=== PATIENT | male | born 1940 | race Caucasian/White ===

== ENCOUNTER 2018-08-12 10:20 | Observation (INO) | payer MEDICARE ==
[2018-08-12 10:41] LABS: ABSOLUTE EOSINOPHILS # (AUTO) 0.1 10^3/uL (0.0-0.6); ABSOLUTE LYMPHOCYTES (AUTO) 1.4 10^3/uL (0.5-4.7); ABSOLUTE MONOCYTES (AUTO) 0.7 10^3/uL (0.1-1.4); ABSOLUTE NEUT (AUTO) 7.5 10^3/uL (1.7-8.2); BASOPHILS % (AUTO) 0.5 % (0-2); EOSINOPHILS % (AUTO) 0.7 % (0-6); HEMATOCRIT 27.3 % (37.9-51.0); HEMOGLOBIN 9.3 g/dL (13.5-17.0); LYMPHOCYTES % (AUTO) 14.2 % (13-45); MEAN CORPUSCULAR HEMOGLOBIN 29.7 pg (27.0-33.4); MEAN CORPUSCULAR HGB CONC 33.8 g/dL (32.0-36.0); MEAN CORPUSCULAR VOLUME 88 fl (80-97); MONOCYTES % (AUTO) 7.2 % (3-13); PLATELET COUNT 240 10^3/uL (150-450); RED BLOOD COUNT 3.11 10^6/uL (4.35-5.55); RED CELL DISTRIBUTION WIDTH 12.8 % (11.5-14.0); SEGMENTED NEUTROPHILS % (AUTO) 77.4 % (42-78); TOTAL CELLS COUNTED % (AUTO) 100 %; WHITE BLOOD COUNT 9.7 10^3/uL (4.0-10.5)
--- NOTE | 2018-08-12 10:59 | ER Document Report ---
ED General - General Chief Complaint: Altered Mental Status Stated Complaint: ALTERED MENTAL STATUS Time Seen by Provider: 08/12/18 10:26 Mode of Arrival: Medic Information source: Patient, Emergency Med Personnel Notes: Patient is a 77-year-old male who presents to the emergency department with chief complaint of altered mental status and blood in stools. EMS was called to the home this morning as a friend came to the house and found that the patient was not acting right. Patient's states that patient woke up this morning with slurred speech and altered mental status. On EMS arrival patient was found to be sitting in his chair in the living room next to a propane space heater. His initial O2 saturations were 87-88% and patient was alert but confused. They did a stroke screen which was negative. The fire department was on scene and states that the CO2 levels in the home were elevated. Once EMS got the patient outside his mental status improved rapidly and his oxygen saturation improved to the high 90s. On arrival to the emergency department patient is completely al ert and oriented and able to answer all questions without difficulty. Patient denies any complaints at this time. He does report that over the last 2-3 days he has been having dark red blood in his stools. He states that this happened several years ago and his doctor gave him "some pills" which cleared it up. He states he has not seen his primary care provider in approximately 1 year. He reports past medical history of a TIA in 2001. He reports his only medications daily is an 81 mg aspirin and multivitamin vitamin. TRAVEL OUTSIDE OF THE [place] IN LAST 30 DAYS: No - Related Data Allergies/Adverse Reactions: No Known Allergies Allergy (Verified 05/13/16 15:25) Past Medical History - Social History Smoking Status: Never Smoker Chew tobacco use (# tins/day): No Frequency of alcohol use: None Drug Abuse: None Family History: Reviewed & Not Pertinent Patient has suicidal ideation: No Patient has homicidal ideation: No - Past Medical History Cardiac Medical History: Denies: Hx Coronary Artery Disease, Hx Heart Attack, Hx Hypertension Pulmonary Medical History: Denies: Hx Asthma, Hx Bronchitis, Hx COPD, Hx Pneumonia Neurological Medical History: Denies: Hx Cerebrovascular Accident, Hx Seizures Renal/ Medical History: Denies: Hx Peritoneal Dialysis Musculoskeletal Medical History: Reports Hx Arthritis - SHOULDERS - Immunizations Hx Diphtheria, Pertussis, Tetanus Vaccination: Yes Physical Exam - Vital signs Vitals: Resp BP Pulse Ox 15 155/74 H 98 08/12/18 10:29 08/12/18 10:29 08/12/18 10:29 - Notes Notes: PHYSICAL EXAMINATION: GENERAL: Well-appearing, well-nourished and in no acute distress. HEAD: Atraumatic, normocephalic. EYES: Pupils equal round and reactive to light, extraocular movements intact, sclera anicteric, conjunctiva are normal. ENT: Nares patent, oropharynx clear without exudates. Moist mucous membranes. NECK: Normal range of motion, supple without lymphadenopathy LUNGS: Breath sounds clear to auscultation bilaterally and equal. No wheezes rales or rhonchi. HEART: Regular rate and rhythm without murmurs ABDOMEN: Soft, nontender, nondistended abdomen. No guarding, no rebound. No masses appreciated. Musculoskeletal: Normal range of motion, no pitting or edema. No cyanosis. Gastrointestinal: No external hemorrhoids visualized, dark red blood noted on digital exam. NEUROLOGICAL: Cranial nerves grossly intact. Normal speech, normal gait. Normal sensory, motor exams PSYCH: Normal mood, normal affect. SKIN: Warm, Dry, normal turgor, no rashes or lesions noted. Course - Re-evaluation Re-evalutation: 08/12/18 11:22 On arrival patient was completely alert, oriented with no neurological deficits noted. Patient was placed on the monitor tech as well as continuous pulse ox monitoring and patient's vital signs are all within normal limits. Lab work was obtained and sent for analysis. Bedside Hemoccult was performed and was positive. Patient was sent for head CT due to episode of altered mental status prior to arrival. Hemoglobin of 9.1, we do not have a baseline on file for this patient. CMP is unremarkable. Carboxyhemoglobin slightly elevated at 1.8. Patient receiving O2 via nasal cannula 3 L at this time. EKG is a sinus rhythm with a rate of 90, prolonged QTC at 500, right bundle branch block noted, no ST segment elevations or depressions, no previous EKG on file. Bedside Hemoccult is positive. 08/12/18 11:[address] Rogel, on-call surgeon for possible colonoscopy. Dr. Rogel will come see the patient. Added on orders for coagulation studies as well as type and screen. Head CT is resulted and has no acute findings. 08/12/18 12:31 Patient accepted for admission by Dr. Rogel. - Vital Signs Vital signs: Temp Pulse Resp BP Pulse Ox 97.3 F 12 145/80 H 100 08/12/18 10:31 08/12/18 12:01 08/12/18 12:01 08/12/18 12:01 - Laboratory Result Diagrams: 08/12/18 10:10 08/12/18 10:10 Laboratory results interpreted by me: 08/12/18 08/12/18 08/12/18 10:10 10:10 10:35 RBC 3.11 L Hgb 9.3 L Hct 27.3 L Carboxyhemoglobin 1.8 H Sodium 136.5 L Glucose 264 H Total Protein 5.9 L Albumin 3.1 L - Diagnostic Test Radiology reviewed: Reports reviewed Discharge - Discharge Clinical Impression: Elevated carboxyhemoglobin GI bleed Qualifiers: GI bleed type/associated pathology: melena Qualified Code(s): K92.1 - Melena Condition: Stable Disposition: ADMITTED INPATIENT Admitting Provider: Surgicalist Unit Admitted: Medical Floor
[2018-08-12 11:09] LABS: ALANINE AMINOTRANSFERASE 22 U/L (21-72); ALBUMIN 3.1 g/dL (3.5-5.0); ALKALINE PHOSPHATASE 67 U/L (38-126); ANION GAP 7 (5-19); ASPARTATE AMINO TRANSFERASE 17 U/L (17-59); BILIRUBIN,DIRECT 0.2 mg/dL (0.0-0.4); BILIRUBIN,TOTAL 0.5 mg/dL (0.2-1.3); BLOOD UREA NITROGEN 20 mg/dL (7-20); CALCIUM 8.6 mg/dL (8.4-10.2); CARBON DIOXIDE 27 mmol/L (22-30); CHLORIDE 103 mmol/L (98-107); GLUCOSE 264 mg/dL (75-110); POTASSIUM 4.8 mmol/L (3.6-5.0); SODIUM 136.5 mmol/L (137-145); TOTAL PROTEIN 5.9 g/dL (6.3-8.2)
--- NOTE | 2018-08-12 11:28 | RADIOLOGY REPORT (SQ) ---
EXAM DESCRIPTION: CT HEAD WITHOUT COMPLETED DATE/TIME: 08/12/2018 11:19 am REASON FOR STUDY: resolved ams COMPARISON: 05/13/2016. TECHNIQUE: Axial images acquired through the brain without intravenous contrast. Images reviewed wi th bone, brain and subdural windows. Additional sagittal and coronal reconstructions were generated. Images stored on PACS. All CT scanners at this facility use dose modulation, iterative reconstruction, and/or weight based d osing when appropriate to reduce radiation dose to as low as reasonably achievable (ALARA). [facility]: Dose Right [facility]: CareDose [facility]: Dose Right [facility]: Teradose 4D [facility]: Pronota RADIATION DOSE: CT Rad equipment meets quality standard of care and radiation dose reduction techniq ues were employed. CTDIvol: 53.2 mGy. DLP: 991 mGy-cm.mGy. LIMITATIONS: None. FINDINGS: VENTRICLES: Prominent. CEREBRUM: No masses. No hemorrhage. No midline shift. Areas of low density in the white matter mos t likely due to chronic micro-vascular ischemic change. No evidence for acute infarction. CEREBELLUM: No masses. No hemorrhage. No alteration of density. No evidence for acute infarction. EXTRAAXIAL SPACES: Age-related involutional change. No fluid collections. No masses. ORBITS AND GLOBE: No intra- or extraconal masses. Normal contour of globe without masses. CALVARIUM: No fracture. PARANASAL SINUSES: No fluid or mucosal thickening. SOFT TISSUES: No mass or hematoma. OTHER: No other significant finding. IMPRESSION: CHRONIC CHANGES OF ATROPHY AND MICROVASCULAR ISCHEMIA. NO ACUTE PROCESS. EVIDENCE OF ACUTE STROKE: NO. TECHNICAL DOCUMENTATION: JOB ID: [id number] Quality ID # [id number]: Final reports with documentation of one or more dose reduction techniques (e.g., Au tomated exposure control, adjustment of the mA and/or kV according to patient size, use of iterative reconstruction technique) 2010 [employer]- All Rights Reserved Reading location - IP/workstation name: [email or web address]
[2018-08-12 11:49] LABS: INTERNATIONAL RATION (INR) 1.06; PROTHROMBIN TIME 14.3 SEC (11.4-15.4)
[2018-08-12 11:50] LABS: PARTIAL THROMBOPLASTIN TIME 25.9 SEC (23.5-35.8)
[2018-08-12] MEDS ORDERED: NORMAL SALINE 1000 ML 1,000 ML IV ONE (12:32)
--- NOTE | 2018-08-12 12:32 | PDOC H&P ---
History of Present Illness Admission Date/PCP: 08/12/18 Patient complains of: rectal bleeding x 3 days History of Present Illness: KALEB FRANKLIN is a 77 year old male, healthy, with a 3 day hx of hematochetia during defecation. He was brought to the ER by the EMS called by the family concerned by the patient slight confusion. He was using a propane space heater when he became slightly confused. He is on daily 81 mg oral aspirin. His CO level was found to be slightly elevated (1.8) and his H/H is decreased (9.3/27.3), normal coagulation profile. He has a hx of previous gastrointestinal bleeding 1 year ago and treated with 'pills' by his PCP with resolution of the symptoms. Currently, he denies any symptoms such as abdominal pain, painful defecation, heartburn, n/v, weight loss or loss of appetite. Past Medical History Cardiac Medical History: Denies: Coronary Artery Disease, Myocardial Infarction, Hypertension Pulmonary Medical History: Denies: Asthma, Bronchitis, Chronic Obstructive Pulmonary Disease (COPD), Pneumonia Neurological Medical History: Denies: Seizures Musculoskeltal Medical History: Reports: Arthritis - SHOULDERS Hematology: Denies: Anemia Social History Smoking Status: Never Smoker Family History Family History: Reviewed & Not Pertinent Parental Family History Reviewed: No Children Family History Reviewed: No Sibling(s) Family History Reviewed.: No Medication/Allergy Home Medications: Aspirin [Aspirin EC] 81 mg PO DAILY 04/06/13 Allergies/Adverse Reactions: No Known Allergies Allergy (Verified 05/13/16 15:25) Physical Exam Vital Signs: Temp Pulse Resp BP Pulse Ox 97.3 F 12 145/80 H 100 08/12/18 10:31 08/12/18 12:01 08/12/18 12:01 08/12/18 12:01 Intake & Output 08/11/18 08/12/18 08/13/18 06:59 06:59 06:59 Weight 67.5 kg General appearance: PRESENT: no acute distress, cooperative Eye exam: PRESENT: EOMI Mouth exam: PRESENT: moist Neck exam: PRESENT: full ROM Respiratory exam: PRESENT: clear to auscultation deb Cardiovascular exam: PRESENT: RRR GI/Abdominal exam: PRESENT: normal bowel sounds, soft, other - groins= no hernia identified Extremities exam: PRESENT: full ROM Musculoskeletal exam: PRESENT: full ROM Neurological exam: PRESENT: alert Skin exam: PRESENT: warm Results Laboratory Results: 08/12/18 10:10 08/12/18 10:10 08/12/18 08/12/18 08/12/18 10:10 10:10 10:35 WBC 9.7 RBC 3.11 L Hgb 9.3 L Hct 27.3 L MCV 88 MCH 29.7 MCHC 33.8 RDW 12.8 Plt Count 240 Seg Neutrophils % 77.4 Lymphocytes % 14.2 Monocytes % 7.2 Eosinophils % 0.7 Basophils % 0.5 Absolute Neutrophils 7.5 Absolute Lymphocytes 1.4 Absolute Monocytes 0.7 Absolute Eosinophils 0.1 Absolute Basophils 0.0 Carboxyhemoglobin 1.8 H Sodium 136.5 L Potassium 4.8 Chloride 103 Carbon Dioxide 27 Anion Gap 7 BUN 20 Creatinine 1.12 Est GFR ( Amer) > 60 Est GFR (Non-Af Amer) > 60 Glucose 264 H Calcium 8.6 Total Bilirubin 0.5 AST 17 ALT 22 Alkaline Phosphatase 67 Total Protein 5.9 L Albumin 3.1 L Impressions: Head CT 08/12/18 10:41 IMPRESSION: CHRONIC CHANGES OF ATROPHY AND MICROVASCULAR ISCHEMIA. NO ACUTE PROCESS. EVIDENCE OF ACUTE STROKE: NO. Assessment & Plan - Diagnosis (1) Anemia Qualifiers: Other causes of anemia: acute posthemorrhagic Is this a current diagnosis for this admission?: Yes - Plan Summary Plan Summary: A/ Hematochetia Anemia No actual GI symptoms with negative physical exam Hx of previous lower GI bleeding 1 year ago, not investigated P/ Admit clear liquid diet NPO after MN Consent for EGD colonoscopy with biopsy under IV sedation bowel prep today Fleet enema in AM IVF
[2018-08-12] MEDS ORDERED: PEG 3350/NA SULF,BICARB,CL/KCL 4000 ML PO ONE (16:00)
[2018-08-12] MEDS ORDERED: BISACODYL 5 MG TABEC PO ONE (16:00)
--- NOTE | 2018-08-12 17:56 | EKG REPORT ---
SEVERITY:- ABNORMAL ECG - SINUS RHYTHM RBBB AND LPFB : Confirmed by: Rk Loredo 12-Aug-2018 17:55:38
[2018-08-12] MEDS: POTASSI CL 20 MEQ/NS 1L 1,000 ML IV PRN (17:57)
[2018-08-12 20:48] LABS: APPEARANCE,URINE CLEAR; BILIRUBIN,URINE NEGATIVE (NEGATIVE); COLOR,URINE STRAW; GLUCOSE, URINE 150 mg/dL (NEGATIVE); KETONES,URINE NEGATIVE (NEGATIVE); LEUKOCYTE ESTERASE,URINE NEGATIVE (NEGATIVE); NITRITE,URINE NEGATIVE (NEGATIVE); PROTEIN,URINE NEGATIVE (NEGATIVE); UROBILINOGEN,URINE NEGATIVE mg/dL (<2.0)
[2018-08-12] MEDS ORDERED: ACETAMINOPHEN 325 MG TABLET PO PRN (23:07)
[2018-08-13] MEDS ORDERED: LORAZEPAM INJ 2 MG/1 ML VIAL IV PRN (02:25)
[2018-08-13] MEDS: POTASSI CL 20 MEQ/NS 1L 1,000 ML IV PRN (04:30)
[2018-08-13] MEDS ORDERED: NA PHOS,M-B/NA PHOS,DI-BA (ADULT) 133 ML ENEMA PR ONE (06:00)
[2018-08-13 06:51] LABS: ABSOLUTE BASOPHILS # (AUTO) 0.1 10^3/uL (0.0-0.2); ABSOLUTE EOSINOPHILS # (AUTO) 0.1 10^3/uL (0.0-0.6); ABSOLUTE LYMPHOCYTES (AUTO) 1.7 10^3/uL (0.5-4.7); ABSOLUTE MONOCYTES (AUTO) 0.7 10^3/uL (0.1-1.4); ABSOLUTE NEUT (AUTO) 5.7 10^3/uL (1.7-8.2); EOSINOPHILS % (AUTO) 0.7 % (0-6); LYMPHOCYTES % (AUTO) 20.8 % (13-45); MEAN CORPUSCULAR HEMOGLOBIN 29.6 pg (27.0-33.4); MEAN CORPUSCULAR HGB CONC 34.3 g/dL (32.0-36.0); MEAN CORPUSCULAR VOLUME 86 fl (80-97); MONOCYTES % (AUTO) 8.4 % (3-13); PLATELET COUNT 186 10^3/uL (150-450); RED BLOOD COUNT 2.56 10^6/uL (4.35-5.55); RED CELL DISTRIBUTION WIDTH 12.8 % (11.5-14.0); SEGMENTED NEUTROPHILS % (AUTO) 69.1 % (42-78); TOTAL CELLS COUNTED % (AUTO) 100 %; WHITE BLOOD COUNT 8.3 10^3/uL (4.0-10.5)
[2018-08-13 07:05] LABS: HEMOGLOBIN 7.6 g/dL (13.5-17.0)
[2018-08-13 07:10] LABS: BLOOD UREA NITROGEN 14 mg/dL (7-20); CALCIUM 8.3 mg/dL (8.4-10.2); GLUCOSE 160 mg/dL (75-110)
[2018-08-13 07:15] LABS: ANION GAP 5 (5-19); CARBON DIOXIDE 26 mmol/L (22-30); CHLORIDE 106 mmol/L (98-107); SODIUM 137.1 mmol/L (137-145)
[2018-08-13] MEDS ORDERED: EPINEPHRINE INJ 1 MG/10 ML DISP.SYRIN ONE (11:19)
[2018-08-13] MEDS ORDERED: NALOXONE HCL INJ/PF 0.4 MG/1 ML SDV ONE (11:19)
[2018-08-13] MEDS ORDERED: DIPHENHYDRAMINE HCL 50 MG/ML VIAL ONE (11:19)
[2018-08-13] MEDS ORDERED: GLUCAGON,HUMAN RECOMB 1 MG INJ ONE (11:19)
[2018-08-13] MEDS ORDERED: FLUMAZENIL INJ 0.5 MG/5 ML VIAL ONE (11:19)
[2018-08-13] MEDS ORDERED: ONDANSETRON HCL INJ/PF 4 MG/2 ML SDV ONE (11:19)
[2018-08-13] MEDS: MIDAZOLAM 2 MG/2 ML INJ ONE ×3 (11:20→11:33)
[2018-08-13] MEDS: FENTANYL CITRATE INJ/PF 100 MCG/2 ML AMPUL ONE ×3 (11:22→11:33)
--- NOTE | 2018-08-13 12:10 | Operative Report ---
Nonrecallable Operative Report DATE OF SURGERY: 08/13/18 PREOPERATIVE DIAGNOSIS: anemia, hematocetia, hemepositive stools POSTOPERATIVE DIAGNOSIS: same. normal EGD. sigmoid and left colon diverticulosis OPERATION: EGD. Colonoscopy to cecum SURGEON: GINNY JARAMILLO ANESTHESIA: Moderate Sedation - provided by Dr. Jaramillo= 2 mg IVP Versed; 62.5 mcg Fentanyl TISSUE REMOVED OR ALTERED: n/a COMPLICATIONS: n/a ESTIMATED BLOOD LOSS: n/a INTRAOPERATIVE FINDINGS: Normal EGD. Colonoscopy to cecum significant only for scattered diverticuli of sigmoid and left colon PROCEDURE: see dictation
--- NOTE | 2018-08-13 12:42 | OPERATIVE REPORT E ---
Operative Report NAME: KALEB FRANKLIN : 1940 AGE: 77Y DATE OF SURGERY: 08/13/2018 ROOM: 428 PREOPERATIVE DIAGNOSIS: ANEMIA, HEMATOCHEZIA, HEME POSITIVE STOOLS. POSTOPERATIVE DIAGNOSIS: 1. ANEMIA, HEMATOCHEZIA, HEME POSITIVE STOOLS. 2. NORMAL EPIGASTRIC DUODENOSCOPY. 3. SIGMOID AND LEFT COLON DIVERTICULOSIS OPERATION: 1. EGD 2. Colonoscopy to cecum. SURGEON: GINNY JARAMILLO M.D. SENIOR ENERGY CONSULTANT: None. BLEEDING: None. COMPLICATIONS: None. ANESTHESIA: IV sedation provided by Dr. Jaramillo, 2 mg of Versed, 62.5 mcg of fentanyl IV push. INDICATIONS AND FINDINGS: This is an 77-year-old male who presented to the Emergency Room complaining of maroon-colored stools, no abdominal pain. He was found to be anemic with a hemoglobin of 9. The patient was admitted and underwent a bowel prep overnight and scheduled to undergo EGD and colonoscopy today. Procedure risks, benefits, and complications were explained to the patient. He understands all of the above and decides to proceed. DESCRIPTION OF PROCEDURE: It was done in the procedure room. The patient was placed in the lateral decubitus. IV sedation provided as above. The upper endoscopy was performed by inserting the gastroscope through the mouth, esophagus, stomach, and duodenum. Preparation was good. No masses, polyps, fissures, indentations, mucosal changes, or ulcerations identified. The instrument was then retroflexed. The fundus of the stomach as well as lesser and greater curvature of the stomach appeared to be normal. The antrum was within normal limits. No abnormalities were noted. The instrument was slowly withdrawn into the esophagus which appeared to be within normal limits with no lesions identified. The instrument was removed through the patient's mouth without difficulty. The colonoscopy was then performed by inserting the scope into the rectum to the ascending colon up to the cecum. Preparation was good. No masses, polyps, fissures, indentations, mucosal changes, ulcerations noted. Scattered sigmoid diverticula and left colon diverticula were identified. Instrument could not be retroflexed in the rectum. However, no lesions were noted. The instrument was then removed. The patient tolerated the procedure well and was transferred to the recovery room in satisfactory condition. DICTATING PHYSICIAN: GINNY JARAMILLO M.D. [id number] PHY#: [id number] ID: [id number] JOB#: [id number] ACCT: [id number] cc:GINNY JARAMILLO M.D. > DARRYL
[2018-08-13] MEDS ORDERED: NORMAL SALINE 1000 ML 1,000 ML IV PRN (14:17)
[2018-08-13 15:26] VITALS: BP 158/90
[2018-08-13] MEDS ORDERED: FERROUS SULFATE 325 MG TABLET PO SCH (17:00)
--- NOTE | 2018-08-14 15:55 | DISCHARGE SUMMARY E ---
Discharge Summary NAME: KALEB FRANKLIN : 1940 AGE: 77Y ADMITTED: 08/12/2018 DISCHARGED: 08/13/2018 FINAL DIAGNOSES: 1. Anemia. 2. Sigmoid left colon diverticulosis. 3. State of confusion. PROCEDURE: On 08/13/2018 the patient underwent EGD and colonoscopy. COMPLICATIONS: None. HOSPITAL COURSE: This is a 77-year-old male who was brought to the emergency room because of the history of initial confusion followed by the identification of anemia in his blood work done when the patient came to the emergency room. His initial hemoglobin and hematocrit were 9.7 and 27.3. The patient was therefore admitted, was rehydrated, underwent a bowel prep, was kept n.p.o., and on 08/13/2018 the patient underwent an EGD and colonoscopy. Both procedures were uneventful. No complications. The EGD was negative. The colonoscopy to cecum revealed only scattered diverticula of the sigmoid and left colon. Following that, the patient was transferred to the floor. His diet was advanced to regular. He was discharged to home. He was given instruction to resume regular diet, remain at rest at home on the day of the procedure. The following day the patient was instructed to resume all activities, regular diet, and follow up in Surgery office in 2 weeks. His daily aspirin was discontinued because of the possible diverticular bleeding. The patient was given instructions to take iron 325 mg by mouth twice a day with meals. DICTATING PHYSICIAN: GINNY JARAMILLO M.D. [id number] PHY#: [id number] ID: [id number] JOB#: [id number] ACCT: [id number] cc:GINNY JARAMILLO M.D. > MTDD
== END 2018-08-13 16:00 | disposition home or self-care (01) ==
LOC: ER 10:20 → INTOOBSV 13:31 → EH 13:31 → 4S 14:42 → UNDODISOB 08-13 16:00
PROVIDERS: ADMIT Surgery; ATTEND Surgery
PROC: 0DJ08ZZ Inspection of Upper Intestinal Tract, Via Natural or Artificial Opening Endoscopic (ICD-10-PCS; principal; 2018-08-13 10:00)
PROC: 0DJD8ZZ Inspection of Lower Intestinal Tract, Via Natural or Artificial Opening Endoscopic (ICD-10-PCS; 2018-08-13 10:00)
DX: D62 Acute posthemorrhagic anemia (principal); K57.30 Diverticulosis of large intestine without perforation or abscess without bleeding; R41.0 Disorientation, unspecified; I45.10 Unspecified right bundle-branch block; R79.81 Abnormal blood-gas level; Z79.82 Long term (current) use of aspirin; Z87.19 Personal history of other diseases of the digestive system; Z86.73 Personal history of transient ischemic attack (TIA), and cerebral infarction without residual deficits; Z77.29 Contact with and (suspected) exposure to other hazardous substances
CPT/HCPCS: 93005; 99285; 43235; 45378; 86900; 86901; 36415 ×2; 82375; 86850; 85025 ×2; 85610; 85730; 80048; 80053; 81001; 70450; 93010; A9270 ×3; J2250; J3010; J2060; J3490; J7030; J3480 ×2; J0171; J1200; J1610; J2310; J2405

== ENCOUNTER → 2018-09-08 | Outpatient (CLI) | payer MEDICARE ==
[2018-09-08 12:56] LABS: ABSOLUTE BASOPHILS # (AUTO) 0.1 10^3/uL (0.0-0.2); ABSOLUTE EOSINOPHILS # (AUTO) 0.1 10^3/uL (0.0-0.6); ABSOLUTE MONOCYTES (AUTO) 0.6 10^3/uL (0.1-1.4); ABSOLUTE NEUT (AUTO) 5.6 10^3/uL (1.7-8.2); BASOPHILS % (AUTO) 0.8 % (0-2); EOSINOPHILS % (AUTO) 1.4 % (0-6); HEMATOCRIT 28.3 % (37.9-51.0); HEMOGLOBIN 9.3 g/dL (13.5-17.0); LYMPHOCYTES % (AUTO) 13.5 % (13-45); MEAN CORPUSCULAR HEMOGLOBIN 26.7 pg (27.0-33.4); MEAN CORPUSCULAR HGB CONC 32.9 g/dL (32.0-36.0); MONOCYTES % (AUTO) 8.5 % (3-13); PLATELET COUNT 384 10^3/uL (150-450); RED CELL DISTRIBUTION WIDTH 14.4 % (11.5-14.0); SEGMENTED NEUTROPHILS % (AUTO) 75.8 % (42-78); TOTAL CELLS COUNTED % (AUTO) 100 %; WHITE BLOOD COUNT 7.4 10^3/uL (4.0-10.5)
[2018-09-08 13:05] LABS: MEAN CORPUSCULAR VOLUME 81 fl (80-97)
[2018-09-08 13:17] LABS: ALANINE AMINOTRANSFERASE 15 U/L (21-72); ALBUMIN 3.4 g/dL (3.5-5.0); ALKALINE PHOSPHATASE 96 U/L (38-126); ANION GAP 10 (5-19); ASPARTATE AMINO TRANSFERASE 19 U/L (17-59); BILIRUBIN,DIRECT 0.2 mg/dL (0.0-0.4); BILIRUBIN,TOTAL 0.4 mg/dL (0.2-1.3); BLOOD UREA NITROGEN 15 mg/dL (7-20); CALCIUM 8.8 mg/dL (8.4-10.2); CARBON DIOXIDE 32 mmol/L (22-30); CHLORIDE 100 mmol/L (98-107); GLUCOSE 153 mg/dL (75-110); POTASSIUM 3.9 mmol/L (3.6-5.0); TOTAL PROTEIN 6.8 g/dL (6.3-8.2)
[2018-09-08 13:33] LABS: FREE T4 (FREE THYROXINE) 1.05 ng/dL (0.78-2.19)
[2018-09-08 13:47] LABS: THYROID STIMULATING HORMONE 2.21 uIU/mL (0.47-4.68)
== END ==
LOC: OD 11:18
PROVIDERS: ATTEND Internal Medicine
DX: D64.9 Anemia, unspecified (principal); R63.4 Abnormal weight loss; R53.83 Other fatigue; R54 Age-related physical debility
CPT/HCPCS: 36415; 80053; 84439; 84443; 85025

== ENCOUNTER → 2018-09-29 | Outpatient (CLI) | payer MEDICARE ==
[2018-09-29 13:38] LABS: ABSOLUTE BASOPHILS # (AUTO) 0.1 10^3/uL (0.0-0.2); ABSOLUTE EOSINOPHILS # (AUTO) 0.1 10^3/uL (0.0-0.6); ABSOLUTE LYMPHOCYTES (AUTO) 1.4 10^3/uL (0.5-4.7); ABSOLUTE MONOCYTES (AUTO) 0.7 10^3/uL (0.1-1.4); ABSOLUTE NEUT (AUTO) 5.8 10^3/uL (1.7-8.2); BASOPHILS % (AUTO) 0.7 % (0-2); EOSINOPHILS % (AUTO) 1.1 % (0-6); HEMATOCRIT 31.9 % (37.9-51.0); HEMOGLOBIN 10.3 g/dL (13.5-17.0); LYMPHOCYTES % (AUTO) 16.9 % (13-45); MEAN CORPUSCULAR HEMOGLOBIN 25.5 pg (27.0-33.4); MEAN CORPUSCULAR HGB CONC 32.2 g/dL (32.0-36.0); MEAN CORPUSCULAR VOLUME 79 fl (80-97); MONOCYTES % (AUTO) 8.5 % (3-13); PLATELET COUNT 333 10^3/uL (150-450); RED BLOOD COUNT 4.04 10^6/uL (4.35-5.55); RED CELL DISTRIBUTION WIDTH 15.9 % (11.5-14.0); SEGMENTED NEUTROPHILS % (AUTO) 72.8 % (42-78); TOTAL CELLS COUNTED % (AUTO) 100 %
== END ==
LOC: OD 12:34
PROVIDERS: ATTEND Internal Medicine
DX: D64.9 Anemia, unspecified (principal)
CPT/HCPCS: 36415; 85025

== ENCOUNTER 2018-12-19 14:23 | Emergency (ER) | payer MEDICARE ==
--- NOTE | 2018-12-19 15:04 | RADIOLOGY REPORT (SQ) ---
EXAM DESCRIPTION: CHEST SINGLE VIEW COMPLETED DATE/TIME: 12/19/2018 2:50 pm REASON FOR STUDY: Positive PPD COMPARISON: None. EXAM PARAMETERS: NUMBER OF VIEWS: One view. TECHNIQUE: Single frontal radiographic view of the chest acquired. RADIATION DOSE: NA LIMITATIONS: None. FINDINGS: LUNGS AND PLEURA: Chronic scarring at left lung base with left pleural thickening. MEDIASTINUM AND HILAR STRUCTURES: No masses. Contour normal. HEART AND VASCULAR STRUCTURES: Normal heart and pulmonary vasculature. . BONES: Chronic rotator cuff degeneration. Degenerative changes at the right AC joint. HARDWARE: None in the chest. OTHER: No other significant finding. IMPRESSION: Left basilar atelectasis and pleural thickening. TECHNICAL DOCUMENTATION: JOB ID: [id number] 2010 [employer]- All Rights Reserved Reading location - IP/workstation name: [email or web address]
--- NOTE | 2018-12-19 17:04 | ER Document Report ---
ED General - General Chief Complaint: Abnormal Lab Results Stated Complaint: WEAKNESS Time Seen by Provider: 12/19/18 16:57 Primary Care Provider: RENITA FLOWERS MD [Primary Care Provider] - Follow up as needed Notes: Patient is a 78-year-old male presents to the emergency department via EMS for positive PPD skin test. Per staff at [facility] patient was admitted to their facility on 12/16 after a CVA which left him with left-sided deficits. Per routine administration to the [facility] PPD was performed. PPD was read this morning and was noted to be positive so the patient was sent to the emergency room. Staff and patient are denying any complaints at this time. Patient does know his name, date of , that he is currently in the emergency department but is unable to tell me any further information. Most of patient's HPI was obtained from paperwork sent by [facility]. Past medical history: CVA, dementia, hypertension, diabetes, CARISSA Medications: Amlodipine, aspirin, pantoprazole, potassium, losartan, metformin Allergies: None TRAVEL OUTSIDE OF THE [place] IN LAST 30 DAYS: No - Related Data Allergies/Adverse Reactions: No Known Allergies Allergy (Verified 08/12/18 14:04) Past Medical History - General Information source: Transfer Record - Social History Smoking Status: Never Smoker Chew tobacco use (# tins/day): No Frequency of alcohol use: None Drug Abuse: None Family History: Reviewed & Not Pertinent Patient has suicidal ideation: No Patient has homicidal ideation: No - Past Medical History Cardiac Medical History: Denies: Hx Coronary Artery Disease, Hx Heart Attack, Hx Hypertension Pulmonary Medical History: Denies: Hx Asthma, Hx Bronchitis, Hx COPD, Hx Pneumonia Neurological Medical History: Denies: Hx Cerebrovascular Accident, Hx Seizures Renal/ Medical History: Denies: Hx Peritoneal Dialysis Musculoskeletal Medical History: Reports Hx Arthritis - SHOULDERS - Immunizations Hx Diphtheria, Pertussis, Tetanus Vaccination: Yes Review of Systems - Review of Systems Constitutional: No symptoms reported EENT: No symptoms reported Cardiovascular: No symptoms reported Respiratory: No symptoms reported Gastrointestinal: No symptoms reported Genitourinary: No symptoms reported Male Genitourinary: No symptoms reported Musculoskeletal: No symptoms reported Skin: See HPI Hematologic/Lymphatic: No symptoms reported Neurological/Psychological: See HPI Physical Exam - Vital signs Vitals: Temp Pulse Resp BP Pulse Ox 98.1 F 82 16 137/76 H 99 12/19/18 15:16 12/19/18 15:16 12/19/18 15:16 12/19/18 15:16 12/19/18 15:16 - Notes Notes: GENERAL: Alert, interacts well. No acute distress. HEAD: Normocephalic, atraumatic. EYES: Pupils equal, round, and reactive to light. Extraocular movements intact. ENT: Oral mucosa moist, tongue midline. NECK: Full range of motion. Supple. Trachea midline. LUNGS: Clear to auscultation bilaterally, no wheezes, rales, or rhonchi. No respiratory distress. HEART: Regular rate and rhythm. No murmur ABDOMEN: Soft, non-tender. Non-distended. Bowel sounds present in all 4 quadrants. EXTREMITIES: Moves all 4 extremities spontaneously. No edema, normal radial and dorsalis pedis pulses bilaterally. No cyanosis. 4 out of 4 strength noted all 4 extremities BACK: no cervical, thoracic, lumbar midline tenderness. No saddle anesthesia, normal distal neurovascular exam. NEUROLOGICAL: Alert and oriented to self and place. Normal speech. PSYCH: Normal affect, normal mood. SKIN: Warm, dry, normal turgor. Small area of erythema and induration noted left anterior forearm (presumed area of PPD placement) Course - Re-evaluation Re-evalutation: 12/19/18 17:01 Patient's PPD is placed and left forearm, does appear to be indurated at this time. Patient is unable to tell staff if he has ever had a positive PPD in the past. [facility] has also been contacted and they are also unable to tell staff if the patient has had a positive PPD. Patient's chest x-ray shows no cavitary lesions. Discussed this case with Dr. Shah, my attending who stated that the Pt. can be D/Kartik back to primary nursing facility will continue follow- up with infectious control. Patient continues to be without complaints. Patient stable for discharge. 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 Your chest x-ray reveals no signs of active tuberculosis. You should follow-up with an infectious disease doctor through your primary care provider. Please also return to the emergency room for any other concerns. Referrals: RENITA FLOWERS MD [Primary Care Provider] - Follow up as needed
[2018-12-19 18:03] VITALS: BP 169/97
== END 2018-12-19 18:25 ==
LOC: ER 14:23
DX: R76.11 Nonspecific reaction to tuberculin skin test without active tuberculosis (principal); R53.1 Weakness; F03.90 Unspecified dementia, unspecified severity, without behavioral disturbance, psychotic disturbance, mood disturbance, and anxiety; I10 Essential (primary) hypertension; E11.9 Type 2 diabetes mellitus without complications; Z79.899 Other long term (current) drug therapy; Z79.82 Long term (current) use of aspirin
CPT/HCPCS: 71045; 80053; 83036; 99284

== ENCOUNTER 2019-05-25 12:35 | Inpatient (IN) | payer MEDICARE ==
[2019-05-25 13:07] LABS: HEMATOCRIT 32.6 % (37.9-51.0); HEMOGLOBIN 10.5 g/dL (13.5-17.0); MEAN CORPUSCULAR HEMOGLOBIN 25.6 pg (27.0-33.4); MEAN CORPUSCULAR HGB CONC 32.2 g/dL (32.0-36.0); MEAN CORPUSCULAR VOLUME 80 fl (80-97); PLATELET COUNT 263 10^3/uL (150-450); RED BLOOD COUNT 4.09 10^6/uL (4.35-5.55); WHITE BLOOD COUNT 7.8 10^3/uL (4.0-10.5)
[2019-05-25 13:25] LABS: ABSOLUTE LYMPHOCYTES# (MANUAL) 0.3 10^3/uL (0.5-4.7); ABSOLUTE MONOCYTES # (MANUAL) 0.4 10^3/uL (0.1-1.4); ALBUMIN 3.5 g/dL (3.5-5.0); ALKALINE PHOSPHATASE 96 U/L (38-126); ANION GAP 12 (5-19); ANISOCYTOSIS 1+; ASPARTATE AMINO TRANSFERASE 21 U/L (17-59); BAND NEUTROPHILS % (MANUAL) 3 % (3-5); BASOPHILS % (MANUAL) 0 % (0-2); BILIRUBIN,DIRECT 0.2 mg/dL (0.0-0.4); BILIRUBIN,TOTAL 0.4 mg/dL (0.2-1.3); BLOOD UREA NITROGEN 25 mg/dL (7-20); CALCIUM 9.2 mg/dL (8.4-10.2); CARBON DIOXIDE 26 mmol/L (22-30); CHLORIDE 103 mmol/L (98-107); EOSINOPHILS % (MANUAL) 0 % (0-6); GLUCOSE 229 mg/dL (75-110); LYMPHOCYTES % (MANUAL) 3 % (13-45); MONOCYTES % (MANUAL) 5 % (3-13); PLATELET COMMENT ADEQUATE; SEGMENTED NEUTROPHILS % (MAN) 88 % (42-78); TOTAL CELLS COUNTED 100; TOTAL PROTEIN 7.1 g/dL (6.3-8.2)
[2019-05-25 13:27] LABS: ALCOHOL < 10 mg/dL (NONE DETECTED)
[2019-05-25] MEDS ORDERED: NORMAL SALINE 500 ML IV ONE (13:34)
[2019-05-25] MEDS ORDERED: ACETAMINOPHEN 1,000 MG/100 ML RTUPB IV ONE (13:34)
--- NOTE | 2019-05-25 13:51 | EKG REPORT ---
SEVERITY:- ABNORMAL ECG - SINUS TACHYCARDIA RBBB AND LPFB : Confirmed by: Alex Crain MD 25-May-2019 13:50:41
[2019-05-25 13:56] LABS: APPEARANCE,URINE CLEAR; COLOR,URINE LIGHT YELLOW
[2019-05-25 13:57] LABS: ADD MANUAL MICROSCOPIC YES; BILIRUBIN,URINE NEGATIVE (NEGATIVE); GLUCOSE, URINE 500 mg/dL (NEGATIVE); KETONES,URINE NEGATIVE (NEGATIVE); LEUKOCYTE ESTERASE,URINE NEGATIVE (NEGATIVE); NITRITE,URINE NEGATIVE (NEGATIVE); PROTEIN,URINE 30 mg/dL (NEGATIVE); RBC,URINE 30-50 /HPF; URINE SPECIFIC GRAVITY 1.015; UROBILINOGEN,URINE NEGATIVE mg/dL (<2.0); WBC,URINE RARE /HPF
[2019-05-25 13:58] LABS: AMORPHOUS SEDIMENT,UR TRACE; YEAST,URINE PRESENT
[2019-05-25 14:20] LABS: URINE AMPHETAMINES SCREEN NEGATIVE; URINE BARBITURATES SCREEN NEGATIVE; URINE BENZODIAZEPINES SCREEN NEGATIVE; URINE COCAINE SCREEN NEGATIVE; URINE MARIJUANA (THC) SCREEN NEGATIVE; URINE METHADONE SCREEN NEGATIVE; URINE PHENCYCLIDINE SCREEN NEGATIVE
--- NOTE | 2019-05-25 14:54 | RADIOLOGY REPORT (SQ) ---
EXAM DESCRIPTION: CT HEAD WITHOUT COMPLETED DATE/TIME: 05/25/2019 2:38 pm REASON FOR STUDY: ams COMPARISON: CT of the head without contrast from 08/12/2018. TECHNIQUE: Axial images acquired through the brain without intravenous contrast. Images reviewed wi th bone, brain and subdural windows. Additional sagittal and coronal reconstructions were generated. Images stored on PACS. All CT scanners at this facility use dose modulation, iterative reconstruction, and/or weight based d osing when appropriate to reduce radiation dose to as low as reasonably achievable (ALARA). [facility]: Dose Right [facility]: CareDose [facility]: Dose Right [facility]: Teradose 4D [facility]: [place] Wi Max RADIATION DOSE: CT Rad equipment meets quality standard of care and radiation dose reduction techniq ues were employed. CTDIvol: 53.2 mGy. DLP: 1044 mGy-cm. mGy. LIMITATIONS: None. FINDINGS: The confluent areas of hypoattenuation within the supratentorial periventricular and subco rtical white matter are unchanged and could represent the sequela of chronic microvascular ischemia. The focal areas of hypoattenuation within the basal ganglia and charlene could represent chronic lacunar infarcts. There is no acute intracranial hemorrhage, vascular territorial infarct, extra-axial flui d collection, mass effect or midline shift. There is no effacement of the cerebral sulci or basal correa barachnoid cisterns. The caliber of the ventricles is concordant with the degree of sulcation and un changed from 08/12/2018. The orbits and globes are intact. The paranasal sinuses are clear. There is no fracture of the calv arium. IMPRESSION: Sequela of chronic ischemia without a in tissue per imposed acute intracranial abnormali ty. If clinical concern for an acute CVA persists then correlation with a MRI is recommended. EVIDENCE OF ACUTE STROKE: NO. COMMENT: Quality ID # [id number]: Final reports with documentation of one or more dose reduction techniques (e.g., Automated exposure control, adjustment of the mA and/or kV according to patient size, use of iterative reconstruction technique) TECHNICAL DOCUMENTATION: JOB ID: [id number] [employer]- All Rights Reserved Reading location - IP/workstation name: [email or web address]
--- NOTE | 2019-05-25 15:00 | RADIOLOGY REPORT (SQ) ---
EXAM DESCRIPTION: CHEST SINGLE VIEW COMPLETED DATE/TIME: 05/25/2019 2:42 pm REASON FOR STUDY: ams COMPARISON: AP view of the chest from 12/19/2018. EXAM PARAMETERS: NUMBER OF VIEWS: One view. TECHNIQUE: Single frontal radiographic view of the chest acquired. RADIATION DOSE: NA LIMITATIONS: None. FINDINGS: LUNGS AND PLEURA: The left lateral costophrenic sulcus is blunted. There is an asymmetric airspace opacity in the right lower lobe. There is no pneumothorax. MEDIASTINUM AND HILAR STRUCTURES: Stable mediastinal and hilar contours. HEART AND VASCULAR STRUCTURES: The cardiac silhouette and pulmonary vasculature are within normal orr its. BONES: No acute findings. HARDWARE: None in the chest. OTHER: No other finding. IMPRESSION: 1. Asymmetric airspace opacity in the right lower lobe. Correlate with clinical finding s to exclude pneumonia. 2. Blunting of the left lateral costophrenic sulcus that could represent a trace pleural effusion or chronic pleural thickening. TECHNICAL DOCUMENTATION: JOB ID: [id number] [employer]- All Rights Reserved Reading location - IP/workstation name: [email or web address]
[2019-05-25 16:04] LABS: A TYPE INFLUENZA AG NEGATIVE (NEGATIVE); B INFLUENZA AG NEGATIVE (NEGATIVE)
--- NOTE | 2019-05-25 16:14 | ER Document Report ---
ED General - General Chief Complaint: Altered Mental Status Stated Complaint: ALTERED MENTAL STATUS Time Seen by Provider: 05/25/19 13:21 Primary Care Provider: RENITA FLOWERS MD [Primary Care Provider] - Follow up as needed TRAVEL OUTSIDE OF THE [place] IN LAST 30 DAYS: No - HPI Notes: This is a 78-year-old male who presents via rescue from home for evaluation of altered mental status. Apparently rescue was called by home health nursing. Patient has a history of a recent UTI. Patient is usually alert and oriented x4. EMS reports that patient's O2 sats are 82% on room air, he received a 500 cc bolus of normal saline and 325 of oral Tylenol. Patient's blood pressure was reportedly 170/99 respiratory rate 128, pulse ox 96% on 2 L nasal cannula and blood sugar is 247. Temperature is 102.1 F. Differential diagnosis: Pneumonia, influenza, UTI, sepsis, electrolyte abn ormality - Related Data Allergies/Adverse Reactions: No Known Allergies Allergy (Verified 08/12/18 14:04) Home Medications: ASA, losartan, augmentin, metformin, protonix, potassium, norvasc, atorvastatin. Past Medical History - Social History Smoking Status: Unknown if Ever Smoked Family History: Reviewed & Not Pertinent Patient has suicidal ideation: No Patient has homicidal ideation: No - Past Medical History Cardiac Medical History: Denies: Hx Coronary Artery Disease, Hx Heart Attack, Hx Hypertension Pulmonary Medical History: Denies: Hx Asthma, Hx Bronchitis, Hx COPD, Hx Pneumonia Neurological Medical History: Denies: Hx Cerebrovascular Accident, Hx Seizures Renal/ Medical History: Denies: Hx Peritoneal Dialysis Musculoskeletal Medical History: Reports Hx Arthritis - SHOULDERS - Immunizations Hx Diphtheria, Pertussis, Tetanus Vaccination: Yes Review of Systems - Review of Systems Constitutional: See HPI EENT: No symptoms reported Cardiovascular: No symptoms reported Respiratory: No symptoms reported Gastrointestinal: No symptoms reported Genitourinary: No symptoms reported Male Genitourinary: No symptoms reported Musculoskeletal: No symptoms reported Skin: No symptoms reported Hematologic/Lymphatic: No symptoms reported Neurological/Psychological: Other - Altered mental status -: Yes All other systems reviewed and negative Physical Exam - Vital signs Vitals: Temp Resp BP Pulse Ox 100.0 F 25 H 171/83 H 97 05/25/19 12:42 05/25/19 12:42 05/25/19 12:42 05/25/19 12:42 - Notes Notes: PHYSICAL EXAMINATION: GENERAL: Frail, chronically ill-appearing, in no acute distress. HEAD: Atraumatic, normocephalic. EYES: Pupils equal round and reactive to light, extraocular movements intact, sclera anicteric, conjunctiva are normal. ENT: nares patent, oropharynx clear without exudates. Dry mucous membranes. NECK: Normal range of motion, supple without lymphadenopathy LUNGS: Breath sounds diminished bilaterally. HEART: Tachycardic ABDOMEN: Soft, nontender, quiet bowel sounds. No guarding, no rebound. No masses appreciated. EXTREMITIES: Normal range of motion, no pitting or edema. No cyanosis. NEUROLOGICAL: No focal neurological deficits. Moves all extremities spontaneously PSYCH: Normal mood, normal affect. SKIN: Warm, Dry, normal turgor, no rashes or lesions noted. Course - Re-evaluation Re-evalutation: 05/25/19 16:45 Patient is lying in bed and is in no acute distress at this time. Diagnosis discussed with patient and patient's son who is at bedside. - Vital Signs Vital signs: Temp Pulse Resp BP Pulse Ox 98.8 F 18 119/72 96 05/25/19 14:42 05/25/19 14:01 05/25/19 14:01 05/25/19 14:01 05/25/19 16:47 Vital signs reviewed by this MD. - Laboratory Result Diagrams: 05/25/19 12:48 05/25/19 12:48 Laboratory results interpreted by me: 05/25/19 05/25/19 05/25/19 12:48 12:48 13:23 RBC 4.09 L Hgb 10.5 L Hct 32.6 L MCH 25.6 L RDW 17.0 H Seg Neuts % (Manual) 88 H Lymphocytes % (Manual) 3 L Abs Lymphs (Manual) 0.3 L BUN 25 H Creatinine 1.33 H Est GFR (MDRD) Non-Af 52 L Glucose 229 H Urine Protein 30 H Urine Glucose (UA) 500 H Urine Blood MODERATE H 05/25/19 16:47 All laboratory results reviewed by this MD. - Diagnostic Test Radiology reviewed: Reports reviewed - EKG Interpretation by Me Additional EKG results interpreted by me: 05/25/19 14:18 EKG performed here in the emergency department at 1303 hrs. on 05/25/2019 shows sinus tachycardia, with a rate of 117. Patient has P waves preceding the QRS complexes. QRS complexes appear narrow. There is a right bundle branch block present. 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 When compared to EKG from 08/12/2018, the morphology is grossly similar however the rate is faster than the prior EKG. - Consults DR SANDERS Time consulted: 16:45 Reason for consultation: 05/25/19 16:48 ADMISSION FOR PNEUMONIA Consulted provider: will come to ER Discharge - Discharge Clinical Impression: Pneumonia, Altered mental status Condition: Fair Disposition: ADMITTED OBSERVATION Admitting Provider: Charis (Hospitalist) Unit Admitted: Medical Floor Referrals: RENITA FLOWERS MD [Primary Care Provider] - Follow up as needed
[2019-05-25] MEDS ORDERED: NORMAL SALINE IV ONE (16:39)
[2019-05-25] MEDS ORDERED: PIPERACILLIN/TAZOBACTAM 4.5 GM VIAL IV ONE (16:39)
[2019-05-25] MEDS ORDERED: ACETAMINOPHEN 325 MG TABLET PO PRN (17:36)
[2019-05-25] MEDS ORDERED: TEMAZEPAM 7.5 MG CAPSULE PO PRN (17:36)
[2019-05-25] MEDS ORDERED: ACETAMINOPHEN 650 MG SUPP.RECT PR PRN (17:36)
[2019-05-25] MEDS ORDERED: MAGNESIUM HYDROXIDE SUSP 30 ML UDCUP PO PRN (17:36)
[2019-05-25] MEDS: PIPERACILLIN SODIUM/TAZOBACTAM 4.5 GM in NORMAL SALINE 100 ML IV SCH ×2 (18:15→23:30)
[2019-05-25] MEDS ORDERED: DEXTROSE 40% GEL 15 GM TUBE PO PRN ×2 (18:34)
[2019-05-25] MEDS ORDERED: GLUCAGON,HUMAN RECOMB 1 MG INJ IM PRN (18:34)
[2019-05-25] MEDS ORDERED: DEXTROSE 50%-WATER 25 GM/50 ML DISP.SYRIN IV PRN ×2 (18:34)
[2019-05-25] MEDS ORDERED: LEVALBUTEROL HCL NEB 0.63 MG/3 ML AMPUL NEB PRN (18:41)
--- NOTE | 2019-05-25 18:49 | PDOC H&P ---
History of Present Illness Admission Date/PCP: 05/25/19 17:17 RENITA FLOWERS MD Patient complains of: Increasing weakness History of Present Illness: KALEB FRANKLIN is a 78 year old male who has been experiencing a state of generalized decline over the last 4 weeks. 4 weeks ago his PCP treated him as an outpatient for suspected pneumonia. Approximately 1-1/2 weeks ago he was in the emergency department and treated for suspected urinary tract infection. He now returns with pneumonia. The patient's son and the patient concur that he really has not felt any better for the last 4 weeks and in fact they have noticed a decline. When EMS arrived the house and evaluated the patient was found to have a low oxygen saturation of less than 88% on room air. He was given oxygen and his saturation improved. He in fact is currently resting on room air. He was also found to have a fever of 102.5. His mean arterial pressure stayed above 70. His serum creatinine was elevated at 1.33 and his platelet count was normal. Based on his hypoxia and increased serum creatinine he does meet the criteria for sepsis. He was given appropriate fluid bolus, started on antibiotics for the pneumonia seen on chest x-ray and referred to the hospital service for admission. Past Medical History Cardiac Medical History: Reports: Hyperlipidema, Hypertension Denies: Coronary Artery Disease, Myocardial Infarction Pulmonary Medical History: Denies: Asthma, Bronchitis, Chronic Obstructive Pulmonary Disease (COPD), Pneumonia EENT Medical History: Denies: Eyes, Ears, Nose, Throat Neurological Medical History: Reports: Ischemic CVA Denies: Seizures Endocrine Medical History: Reports: Diabetes Mellitus Type 2 Malignancy Medical History: Reports: None GI Medical History: Denies: Crohn's Disease, Diverticulitis, Hiatal Hernia, Ulcerative Colitis Musculoskeltal Medical History: Reports: Arthritis - SHOULDERS Skin Medical History: Denies: Eczema, Psoriasis Psychiatric Medical History: Denies: Alcohol Dependency, Bipolar Disorder, Depression, Tobacco Dependency Traumatic Medical History: Reports: None Hematology: Denies: Anemia, Bleeding Tendencies, Neutropenia Infectious Medical History: Reports: None Past Surgical History Past Surgical History: Reports: None Social History Information Source: Patient, Relative - Son Lives with: Spouse/Significant other Smoking Status: Never Smoker Electronic Cigarette use?: No Frequency of Alcohol Use: None Hx Recreational Drug Use: No Drugs: None Hx Prescription Drug Abuse: No - Advance Directive Resuscitation Status: Do Not Resuscitate Surrogate healthcare decision maker:: Discussed with the patient and the son who is at the bedside. Family History Family History: CAD, CVA, Malignancy, Other - Depression Parental Family History Reviewed: Yes Children Family History Reviewed: Yes Sibling(s) Family History Reviewed.: Yes Medication/Allergy Allergies/Adverse Reactions: No Known Allergies Allergy (Verified 08/12/18 14:04) Review of Systems Constitutional: PRESENT: fatigue, weight loss. ABSENT: anorexia, headache(s) Ears: ABSENT: hearing changes Nose, Mouth, and Throat: PRESENT: other - Dentures. ABSENT: mouth pain, sore throat Cardiovascular: ABSENT: chest pain, edema, palpitations Respiratory: PRESENT: cough. ABSENT: hemoptysis, sputum Gastrointestinal: ABSENT: abdominal pain, coffee ground emesis, constipation, diarrhea, heartburn, nausea, vomiting Genitourinary: ABSENT: dysuria, hematuria, nocturia Musculoskeletal: PRESENT: other - Bunions. ABSENT: back pain, joint swelling Integumentary: PRESENT: other - Onychomycosis Neurological: ABSENT: abnormal speech, confusion, memory loss, tremor(s), vert igo Psychiatric: ABSENT: anxiety, depression, hallucinations Endocrine: ABSENT: cold intolerance, heat intolerance, polydipsia, polyuria Hematologic/Lymphatic: ABSENT: easy bleeding, easy bruising Allergic/Immunologic: ABSENT: seasonal rhinorrhea Physical Exam Vital Signs: Temp Pulse Resp BP Pulse Ox 98.8 F 19 126/75 H 97 05/25/19 14:42 05/25/19 17:01 05/25/19 17:01 05/25/19 17:01 Intake & Output 05/24/19 05/25/19 05/26/19 06:59 06:59 06:59 Intake Total 600 Balance 600 Weight 62.8 kg General appearance: PRESENT: cooperative, mild distress, thin, well-developed - Well-developed but frail-appearing 78-year-old patient resting in bed Head exam: PRESENT: atraumatic, normocephalic Eye exam: PRESENT: conjunctiva pink, EOMI, PERRLA. ABSENT: conjunctival injection, scleral icterus Ear exam: PRESENT: normal external ear exam. ABSENT: bleeding, drainage Mouth exam: PRESENT: dry mucosa, tongue midline Teeth exam: PRESENT: edentulous Neck exam: ABSENT: carotid bruit, JVD, lymphadenopathy, tenderness, tracheostomy Respiratory exam: PRESENT: decreased breath sounds - At bases, rhonchi - Right side, symmetrical, tachypnea, unlabored. ABSENT: chest wall tenderness, rales, wheezes Cardiovascular exam: PRESENT: RRR, +S1, +S2. ABSENT: systolic murmur Pulses: PRESENT: normal radial pulses, normal dorsalis pedis pul GI/Abdominal exam: PRESENT: normal bowel sounds, soft. ABSENT: distended, guarding, tenderness Rectal exam: PRESENT: deferred Gentrourinary exam: ABSENT: indwelling catheter Extremities exam: ABSENT: joint swelling, pedal edema Musculoskeletal exam: PRESENT: normal inspection Neurological exam: PRESENT: alert, awake, oriented to person, oriented to place, oriented to situation, CN II-XII grossly intact Psychiatric exam: PRESENT: flat affect. ABSENT: agitated, anxious Focused psych exam: ABSENT: delusional, restlessness Skin exam: PRESENT: dry - Dry scaly skin especially feet, other - Bilateral elbow abrasions. Onychomycosis multiple toes.. ABSENT: rash Results Laboratory Results: 05/25/19 12:48 05/25/19 12:48 05/25/19 05/25/19 05/25/19 12:48 12:48 13:23 WBC 7.8 RBC 4.09 L Hgb 10.5 L Hct 32.6 L MCV 80 MCH 25.6 L MCHC 32.2 RDW 17.0 H Plt Count 263 Seg Neutrophils % Not Reportable Sodium 140.5 Potassium 5.0 Chloride 103 Carbon Dioxide 26 Anion Gap 12 BUN 25 H Creatinine 1.33 H Est GFR ( Amer) > 60 Glucose 229 H Calcium 9.2 Magnesium 1.9 Total Bilirubin 0.4 AST 21 Alkaline Phosphatase 96 Total Protein 7.1 Albumin 3.5 Urine Color LIGHT YELLOW Urine Appearance CLEAR Urine pH 7.0 Ur Specific [place] 1.015 Urine Protein 30 H Urine Glucose (UA) 500 H Urine Ketones NEGATIVE Urine Blood MODERATE H Urine Nitrite NEGATIVE Ur Leukocyte Esterase NEGATIVE Impressions: Chest X-Ray 05/25/19 14:21 IMPRESSION: 1. Asymmetric airspace opacity in the right lower lobe. Correlate with clinical findings to exclude pneumonia. 2. Blunting of the left lateral costophrenic sulcus that could represent a trace pleural effusion or chronic pleural thickening. Head CT 05/25/19 14:21 IMPRESSION: Sequela of chronic ischemia without a in tissue per imposed acute intracranial abnormality. If clinical concern for an acute CVA persists then correlation with a MRI is recommended. EVIDENCE OF ACUTE STROKE: NO. Assessment and Plan - Diagnosis (1) Sepsis due to pneumonia Is this a current diagnosis for this admission?: Yes Plan: 05/25/2019-the patient was treated for outpatient pneumonia approximately 4 weeks ago. Approximately 10 days ago he was in the emergency department and was treated for urinary tract infection. He now returns with pneumonia. Due to transient hypoxia and slightly elevated serum creatinine he does qualify for sepsis criteria. He was given fluid resuscitation and started on antibiotic therapy. Lactic acid was not drawn on admission and so I have ordered a lactic acid. Since it is per the sepsis protocol it should be repeated automatically if it is elevated. (2) Pneumonia Qualifiers: Pneumonia type: due to unspecified organism Laterality: right Lung location: lower lobe of lung Qualified Code(s): J18.1 - Lobar pneumonia, unspecified organism Is this a current diagnosis for this admission?: Yes Plan: 05/25/2019-the patient was in fact treated by his primary care provider for a suspected pneumonia 3 to 4 weeks ago. It is possible that this pneumonia did not resolve completely and has now returned. There is a right lower lobe infilt rate. There is no report of recurrent vomiting or aspiration. It is most likely community-acquired. The patient has been somewhat compromised and so Haemophilus or pneumococcus would be likely candidates. He is not having a productive cough and so culture will not be available. (3) Hypoxia Is this a current diagnosis for this admission?: Yes Plan: 05/25/2019-upon arrival at the patient's home EMS found him to be hypoxic with pulse oximetry less than 88%. He was placed on nasal cannula oxygen which was continued in the emergency department but successfully weaned shortly thereafter. At the time of this encounter the patient was on room air with oxygen saturation greater than 90%. (4) Altered mental status Qualifiers: Altered mental status type: delirium Qualified Code(s): R41.0 - Disorientation, unspecified Is this a current diagnosis for this admission?: Yes Plan: 05/25/2019-the patient did have altered mental status initially. It was likely due to hypoxia or his infection. He in fact was very appropriate during this encounter. It is likely the transient use of oxygen and IV fluids helped in this recovery. (5) Hypertension Qualifiers: Hypertension type: essential hypertension Qualified Code(s): I10 - Ess ential (primary) hypertension Is this a current diagnosis for this admission?: Yes Plan: 05/25/2019-in order to avoid hypotension in the presence of sepsis the patient is getting aggressive IV fluids. I will continue the losartan 25 mg daily but as a parameter I will asked him to hold for a systolic blood pressure less than 110. (6) Hyperlipidemia Qualifiers: Hyperlipidemia type: mixed hyperlipidemia Qualified Code(s): E78.2 - Mixed hyperlipidemia Is this a current diagnosis for this admission?: Yes Plan: 05/25/2019-the patient has a history of stroke and hypertension. I will continue his atorvastatin 20 mg daily. I have also initiated aspirin 81 mg daily. (7) Weakness Is this a current diagnosis for this admission?: Yes Plan: 05/25/2019-the patient does have a history of stroke but that is not clinically significant at this time. His weakness is more likely from the recurrent infections over the last month as well as his limited mobility due to his illness. I have asked physical therapy to see the patient. - Plan Summary Summary: 05/25/2019-sepsis from pneumonia: Aggressive IV fluids with IV antibiotics. Continue cardiac meds. Assess with physical therapy. I did have a long talk with patient's son and the patient may be a candidate for assisted living post discharge especially considering his 's bipolar disorder and inability to move in with or have family provide enough care with their chronic illnesses. - Time Time Spent with patient: 35 or more minutes Medications reviewed and adjusted accordingly: Yes Anticipated discharge: Other - Home with home health versus assisted living - Inpatient Certification Based on my medical assessment, after consideration of the patient's comorbidities, presenting symptoms, or acuity I expect that the services needed warrant INPATIENT care.: Yes I certify that my determination is in accordance with my understanding of Medicare's requirements for reasonable and necessary INPATIENT services [42 CFR 412.3e].: Yes Medical Necessity: Need For IV Fluids, Need For Continuous Telemetry Monitoring, Need for Nebulizer Therapy and Monitoring of Response, Need for IV Antibiotics
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
[2019-05-25] MEDS: NORMAL SALINE 1000 ML 1,000 ML IV PRN (22:54)
[2019-05-25] MEDS: INSULIN REG, HUMAN 100 UNIT/ML 3 ML VIAL (PYX) SUBCUT SCH (23:30)
[2019-05-25] MEDS: ASPIRIN 81 MG TABLET, ENT COATED PO SCH (23:36)
[2019-05-25] MEDS: ATORVASTATIN CALCIUM 20 MG TABLET PO SCH (23:37)
[2019-05-26] MEDS: PIPERACILLIN SODIUM/TAZOBACTAM 4.5 GM in NORMAL SALINE 100 ML IV SCH ×3 (05:26→18:19)
[2019-05-26] MEDS: PANTOPRAZOLE SODIUM 40 MG TABLET.DR PO SCH (05:42)
[2019-05-26 06:28] LABS: ABSOLUTE LYMPHOCYTES (AUTO) 0.5 10^3/uL (0.5-4.7); ABSOLUTE MONOCYTES (AUTO) 0.4 10^3/uL (0.1-1.4); ABSOLUTE NEUT (AUTO) 3.4 10^3/uL (1.7-8.2); BASOPHILS % (AUTO) 0.5 % (0-2); EOSINOPHILS % (AUTO) 0.6 % (0-6); HEMATOCRIT 28.5 % (37.9-51.0); HEMOGLOBIN 9.2 g/dL (13.5-17.0); LYMPHOCYTES % (AUTO) 11.6 % (13-45); MEAN CORPUSCULAR HEMOGLOBIN 25.4 pg (27.0-33.4); MEAN CORPUSCULAR HGB CONC 32.3 g/dL (32.0-36.0); MEAN CORPUSCULAR VOLUME 79 fl (80-97); MONOCYTES % (AUTO) 9.7 % (3-13); PLATELET COUNT 185 10^3/uL (150-450); RED BLOOD COUNT 3.63 10^6/uL (4.35-5.55); RED CELL DISTRIBUTION WIDTH 17.4 % (11.5-14.0); SEGMENTED NEUTROPHILS % (AUTO) 77.6 % (42-78); TOTAL CELLS COUNTED % (AUTO) 100 %; WHITE BLOOD COUNT 4.4 10^3/uL (4.0-10.5)
[2019-05-26 06:44] LABS: ANION GAP 7 (5-19); BLOOD UREA NITROGEN 20 mg/dL (7-20); CARBON DIOXIDE 23 mmol/L (22-30); CHLORIDE 107 mmol/L (98-107); GLUCOSE 141 mg/dL (75-110); POTASSIUM 4.1 mmol/L (3.6-5.0)
[2019-05-26] MEDS ORDERED: INFLUENZA QUAD (6MOS+) 2019-20 VAC 0.5 ML SYR IM ONE (08:08)
[2019-05-26] MEDS: INSULIN REG, HUMAN 100 UNIT/ML 3 ML VIAL (PYX) SUBCUT SCH ×4 (08:14→22:04)
[2019-05-26] MEDS: METFORMIN HCL 500 MG TABLET PO SCH ×2 (08:41→18:19)
--- NOTE | 2019-05-26 08:54 | RADIOLOGY REPORT (SQ) ---
EXAM DESCRIPTION: CHEST SINGLE VIEW COMPLETED DATE/TIME: 05/26/2019 8:25 am REASON FOR STUDY: Pneumonia COMPARISON: 05/25/2019 EXAM PARAMETERS: NUMBER OF VIEWS: One view. TECHNIQUE: Single frontal radiographic view of the chest acquired. RADIATION DOSE: NA LIMITATIONS: None. FINDINGS: LUNGS AND PLEURA: Improved but persistent patchy opacity within the right lung base. [place] ncy along the left hemithorax with peripheral lung markings felt to represent overlying skin fold. B lunting of the left costophrenic angle possibly trace effusions versus basilar scarring/ pleural thic kening. MEDIASTINUM AND HILAR STRUCTURES: Stable. HEART AND VASCULAR STRUCTURES: Normal heart size. Aortic atherosclerosis. BONES: No acute findings. Unchanged degenerative changes at the right shoulder. HARDWARE: None in the chest. OTHER: No other significant finding. IMPRESSION: Improved but persistent asymmetric right basilar opacity possibly atelectasis or infecti on. Possible trace left effusion versus pleural thickening. TECHNICAL DOCUMENTATION: JOB ID: [id number] [employer]- All Rights Reserved Reading location - IP/workstation name: [email or web address]
[2019-05-26] MEDS: NORMAL SALINE 1000 ML 1,000 ML IV PRN (10:15)
[2019-05-26] MEDS: LOSARTAN POTASSIUM 25 MG TABLET PO SCH (10:15)
[2019-05-26] MEDS: AZITHROMYCIN 500 MG in DEXTROSE 5%-WATER 250 ML IV SCH (10:15)
[2019-05-26] MEDS: NYSTATIN CREAM 15 GM TP SCH ×2 (10:15→17:54)
--- NOTE | 2019-05-26 12:54 | PDOC PROGRESS REPORT ---
Subjective Progress Note for:: 05/26/19 Reason For Visit: SEPSIS 78-year-old male admitted for sepsis, pneumonia, weakness. Patient was hypoxic as well as febrile on admission Physical Exam Vital Signs: Temp Pulse Resp BP Pulse Ox 99.8 F 84 18 132/68 H 97 05/26/19 06:53 05/26/19 07:00 05/26/19 06:53 05/26/19 06:53 05/26/19 06:53 Intake & Output 05/25/19 05/26/19 05/27/19 06:59 06:59 06:59 Intake Total 3210 Balance 3210 Weight 62.9 kg General appearance: PRESENT: mild distress, other - Patient opens his eyes to voice command but no other response Respiratory exam: PRESENT: decreased breath sounds, rhonchi Cardiovascular exam: PRESENT: RRR. ABSENT: diastolic murmur, rubs, systolic murmur Neurological exam: PRESENT: altered, oriented to place, other - Patient does tell me that he is in [place] in the [facility] Patient also identified the president as "Trump" Psychiatric exam: PRESENT: flat affect Results Laboratory Results: 05/26/19 05:52 05/26/19 05:52 05/25/19 05/25/19 05/25/19 12:48 12:48 13:23 WBC 7.8 RBC 4.09 L Hgb 10.5 L Hct 32.6 L MCV 80 MCH 25.6 L MCHC 32.2 RDW 17.0 H Plt Count 263 Seg Neutrophils % Not Reportable Sodium 140.5 Potassium 5.0 Chloride 103 Carbon Dioxide 26 Anion Gap 12 BUN 25 H Creatinine 1.33 H Est GFR ( Amer) > 60 Glucose 229 H Lactic Acid Calcium 9.2 Magnesium 1.9 Total Bilirubin 0.4 AST 21 Alkaline Phosphatase 96 Total Protein 7.1 Albumin 3.5 Urine Color LIGHT YELLOW Urine Appearance CLEAR Urine pH 7.0 Ur Specific [place] 1.015 Urine Protein 30 H Urine Glucose (UA) 500 H Urine Ketones NEGATIVE Urine Blood MODERATE H Urine Nitrite NEGATIVE Ur Leukocyte Esterase NEGATIVE 05/25/19 05/26/19 05/26/19 19:10 05:52 05:52 WBC 4.4 RBC 3.63 L Hgb 9.2 L Hct 28.5 L MCV 79 L MCH 25.4 L MCHC 32.3 RDW 17.4 H Plt Count 185 Seg Neutrophils % 77.6 Sodium 137.0 Potassium 4.1 Chloride 107 Carbon Dioxide 23 Anion Gap 7 BUN 20 Creatinine 1.42 H Est GFR ( Amer) 58 L Glucose 141 H Lactic Acid 1.7 Calcium 8.0 L Magnesium 1.7 Total Bilirubin AST Alkaline Phosphatase Total Protein Albumin Urine Color Urine Appearance Urine pH Ur Specific [place] Urine Protein Urine Glucose (UA) Urine Ketones Urine Blood Urine Nitrite Ur Leukocyte Esterase Impressions: Head CT 05/25/19 14:21 IMPRESSION: Sequela of chronic ischemia without a in tissue per imposed acute intracranial abnormality. If clinical concern for an acute CVA persists then correlation with a MRI is recommended. EVIDENCE OF ACUTE STROKE: NO. Chest X-Ray 05/26/19 06:00 IMPRESSION: Improved but persistent asymmetric right basilar opacity possibly atelectasis or infection. Possible trace left effusion versus pleural thickening. Assessment and Plan - Diagnosis (1) Altered mental status Qualifiers: Altered mental status type: delirium Qualified Code(s): R41.0 - Disorientation, unspecified Is this a current diagnosis for this admission?: Yes (2) Hypertension Qualifiers: Hypertension type: essential hypertension Qualified Code(s): I10 - Essential (primary) hypertension Is this a current diagnosis for this admission?: Yes (3) Hypoxia Is this a current diagnosis for this admission?: Yes (4) Pneumonia Qualifiers: Pneumonia type: due to unspecified organism Laterality: right Lung location: lower lobe of lung Qualified Code(s): J18.1 - Lobar pneumonia, unspecified organism Is this a current diagnosis for this admission?: Yes (5) Sepsis due to pneumonia Is this a current diagnosis for this admission?: Yes (6) Weakness Is this a current diagnosis for this admission?: Yes - Plan Summary Summary: 05/25/2019-sepsis from pneumonia: Aggressive IV fluids with IV antibiotics. Continue cardiac meds. Assess with physical therapy. I did have a long talk with patient's son and the patient may be a candidate for assisted living post discharge especially considering his 's bipolar disorder and inability to move in with or have family provide enough care with their chronic illnesses. 05/26/2019 Patient is vital signs are actually stable. Slight temperature 99.8 blood pressure 132/68, O2 saturation 97% on room air White count still normal 4400 H&H is stable Electrolytes are stable renal function stable, lactic acid yesterday was 1.7 Chest x-ray from yesterday shows improved but persistent asymmetric right basilar opacity She is currently on IV Zosyn, normal saline at 125 an hour, IV Zithromax Patient is DNR
[2019-05-26] MEDS: ASPIRIN 81 MG TABLET, ENT COATED PO SCH (22:04)
[2019-05-26] MEDS: ATORVASTATIN CALCIUM 20 MG TABLET PO SCH (22:04)
[2019-05-27] MEDS: PIPERACILLIN SODIUM/TAZOBACTAM 4.5 GM in NORMAL SALINE 100 ML IV SCH ×5 (00:34→23:56)
[2019-05-27] MEDS: NORMAL SALINE 1000 ML 1,000 ML IV PRN (02:17)
[2019-05-27] MEDS: PANTOPRAZOLE SODIUM 40 MG TABLET.DR PO SCH (05:08)
[2019-05-27] MEDS: INSULIN REG, HUMAN 100 UNIT/ML 3 ML VIAL (PYX) SUBCUT SCH ×4 (07:42→23:02)
[2019-05-27] MEDS: NYSTATIN CREAM 15 GM TP SCH ×2 (09:51→17:27)
[2019-05-27] MEDS: LOSARTAN POTASSIUM 25 MG TABLET PO SCH (09:54)
[2019-05-27] MEDS: METFORMIN HCL 500 MG TABLET PO SCH ×2 (09:55→17:41)
[2019-05-27] MEDS: AZITHROMYCIN 500 MG in DEXTROSE 5%-WATER 250 ML IV SCH (09:55)
--- NOTE | 2019-05-27 10:31 | PDOC PROGRESS REPORT ---
Subjective Progress Note for:: 05/27/19 Reason For Visit: SEPSIS 05/27/2019 he was admitted 3 days ago for sepsis, increased weakness over the last 4 weeks, pneumonia, and hypoxia Physical Exam Vital Signs: Temp Pulse Resp BP Pulse Ox 98.5 F 79 17 145/77 H 93 05/27/19 07:13 05/27/19 07:13 05/27/19 07:13 05/27/19 07:13 05/27/19 07:13 Intake & Output 05/26/19 05/27/19 05/28/19 06:59 06:59 06:59 Intake Total 3210 2500 Output Total 1775 Balance 3210 725 Weight 62.9 kg 64.9 kg General appearance: PRESENT: no acute distress, other - Much more alert today carrying on a normal conversation Respiratory exam: PRESENT: rhonchi Cardiovascular exam: PRESENT: RRR. ABSENT: diastolic murmur, rubs, systolic murmur Neurological exam: PRESENT: alert, awake, oriented to person, oriented to place, oriented to time, oriented to situation, CN II-XII grossly intact, other - No focal deficits. ABSENT: motor sensory deficit Psychiatric exam: PRESENT: appropriate affect, normal mood, other - Very pleasant. ABSENT: homicidal ideation, suicidal ideation Results Laboratory Results: 05/26/19 05:52 05/26/19 05:52 Impressions: Head CT 05/25/19 14:21 IMPRESSION: Sequela of chronic ischemia without a in tissue per imposed acute intracranial abnormality. If clinical concern for an acute CVA persists then correlation with a MRI is recommended. EVIDENCE OF ACUTE STROKE: NO. Chest X-Ray 05/26/19 06:00 IMPRESSION: Improved but persistent asymmetric right basilar opacity possibly atelectasis or infection. Possible trace left effusion versus pleural thickening. Assessment and Plan - Diagnosis (1) Altered mental status Qualifiers: Altered mental status type: delirium Qualified Code(s): R41.0 - Disorientation, unspecified Is this a current diagnosis for this admission?: Yes (2) Hypertension Qualifiers: Hypertension type: essential hypertension Qualified Code(s): I10 - Essential (primary) hypertension Is this a current diagnosis for this admission?: Yes (3) Hypoxia Is this a current diagnosis for this admission?: Yes (4) Pneumonia Qualifiers: Pneumonia type: due to unspecified organism Laterality: right Lung location: lower lobe of lung Qualified Code(s): J18.1 - Lobar pneumonia, unspecified organism Is this a current diagnosis for this admission?: Yes (5) Sepsis due to pneumonia Is this a current diagnosis for this admission?: Yes (6) Weakness Is this a current diagnosis for this admission?: Yes - Plan Summary Summary: 05/25/2019-sepsis from pneumonia: Aggressive IV fluids with IV antibiotics. Continue cardiac meds. Assess with physical therapy. I did have a long talk with patient's son and the patient may be a candidate for assisted living post discharge especially considering his 's bipolar disorder and inability to move in with or have family provide enough care with their chronic illnesses. 05/26/2019 Patient is vital signs are actually stable. Slight temperature 99.8 blood pressure 132/68, O2 saturation 97% on room air White count still normal 4400 H&H is stable Electrolytes are stable renal function stable, lactic acid yesterday was 1.7 Chest x-ray from yesterday shows improved but persistent asymmetric right basilar opacity he is currently on IV Zosyn, normal saline at 125 an hour, IV Zithromax Patient is DNR 05/27/2019 O2 sats 94% on room air patient is growing out gram-positive cocci his blood culture, chest x-ray from yesterday shows improved but persistent right basilar opacity. Day#3 of IV antibiotics Patient is much more alert and oriented today Consult discharge planning in anticipation of possible placement at time of discharge 3 to 4 days from now - Time Time Spent with patient: 25-34 minutes
--- NOTE | 2019-05-27 10:52 | RADIOLOGY REPORT (SQ) ---
EXAM DESCRIPTION: COLLENE SWALLOW COMPLETED DATE/TIME: 05/27/2019 9:43 am REASON FOR STUDY: coughing with thin A41.9 SEPSIS, UNSPECIFIED ORGANISM COMPARISON: None. TECHNIQUE: Videofluoroscopic swallowing examination was performed in conjunction with speech patholo gy. Videofluoroscopic imaging was obtained and reviewed and these are the findings: RADIATION DOSE: 1 minutes 54 seconds of fluoroscopy was used. 1 images saved to PACS. LIMITATIONS: None FINDINGS: The patient was brought into the fluoro room and placed upright on a modified barium swall ow chair. The patient was then given multiple consistencies mixed with barium to swallow under live fluoroscopic video guidance. According to the Speech Pathologist there was laryngeal penetration and aspiration with thin liquids. Penetration seen with nectar thick liquids. IMPRESSION: LARYNGEAL PENETRATION AND ASPIRATION ABOVE. . PLEASE SEE SPEECH PATHOLOGIST REPORT F OR OTHER FINDINGS AND RECOMMENDATIONS. COMMENT: Quality ID [id number]: Final reports for procedures using fluoroscopy that document radiation exp osure indices, or exposure time and number of fluorographic images (if radiation exposure indices are not available) TECHNICAL DOCUMENTATION: JOB ID: [id number] [employer]- All Rights Reserved Reading location - IP/workstation name: [email or web address] [id number]
--- NOTE | 2019-05-27 12:58 | ST Inp Modified Barium Swallow ---
Medical Diagnosis - Medical Diagnoses Medical Diagnosis Description & ICD-10 Code(s): sepsis due to pneumonia - ICD-10 Tx Diagnosis Coding (1) Dysphagia ICD-10 Code(s): R13.10 - DYSPHAGIA, UNSPECIFIED ST Inpatient MBS - General Date: 05/27/19 Date of Onset: 05/26/19 - History -: Medical - per EMR: patient admitted 05/25 with general weakness over a 4 week period, and suspected pneumonia. Patient has history of ischemic CVA with residual weakness, unsure of date of CVA. Nursing reports coughing noted with thin liquids, swallow evaluation was requested 05/26 to rule out aspiration. Patient was having all PO is being held due to concern for aspiration. Bedside swallow assessment completed 05/26, sign overt signs of aspiration on thin liquids, but not nectar or solids. MBSS recommended, as well as nectar liquids and mechanical soft solids. Medications: Medications Reviewed Allergies: No known allergies - Subjective Current Nutritional Means: PO Current PO Diet: Mechanical - cut, Thickened liquids - nectar Current Symptoms: Coughing, Pneumonia Pain: Patient reports, 0/5 - Objective Assessment: Upright, Left Lateral - Food Trials Food Trials Used: Thin liquids, Oberon thick liquids, Pureed, Regular The Patient: Was Able to Self Feed - Assessment Labial Function: Within Normal Limits Lingual Function: Within Normal Limits Mandibular Function: Within Normal Limits Velo-Pharyngeal Function: Unremarkable Laryngeal Function: clear voicing - Pharyngeal Stage Initiation of Pharyngeal Stage: Delayed - triggered after pooling in valleculae Decreased Laryngeal Elevation: No Reduced Velo-Pharyngeal Closure: no Reduced Pressure Generation: No Reduced Tongue Base Retraction: No Pre-Swallowing Pooling in Valleculae: Moderate Pre-Swallowing Pooling in Pyriforms: None Reduced Thyro-Hyiod Approximation: Yes - mild Reduced Epiglottic Excursion: No Reduced Pharyngeal Peristalsis: No Post Swallow Residuals in Valleculae: None Post Swallow Residuals in Pyriforms: None Post Swallow Residuals: no residuals - Impression/Summary Laryngeal Penetration: Yes - with thin liquids and nectar liquids Tracheal Aspiration: yes - with thin liqids Compensatory Strategies: Patient needs external cuing to reduce rate of consumption, especially with liquids. Patient Presents With: Pharyngeal stage dysph., Mild-Moderate Risk of Aspiration: Moderate Risk of Nutritional Compromise: WNL Risk Due To: Patient is at risk of aspiration on the swallow due to very large sips taken, as well discoordination and timing deficits, leaving airway open on initiation of pharyngeal swallow. - Recommendations Solid Diet Recommendations: Mechanical Soft, Chopped Meat Liquid Diet Recommendations: Oberon-Thick Strict Aspitarion Precautions: Yes Dysphagia Therapy with [employer] OPERATOR: Yes Recommended Techniques: Fully Upright During Meal, Small Bites and Sips Other Recommendations: Recommend dysphagia treatment in hospital and after discharge to address airway closure and timing of the swallow. Recommend dysphagia treatment x2 next week. - Time Total Time: 30 Total Timed Minutes: 30
[2019-05-27] MEDS: ATORVASTATIN CALCIUM 20 MG TABLET PO SCH (21:18)
[2019-05-27] MEDS: ASPIRIN 81 MG TABLET, ENT COATED PO SCH (21:18)
[2019-05-28] MEDS: PIPERACILLIN SODIUM/TAZOBACTAM 4.5 GM in NORMAL SALINE 100 ML IV SCH ×2 (05:22→13:38)
[2019-05-28] MEDS: PANTOPRAZOLE SODIUM 40 MG TABLET.DR PO SCH (05:23)
[2019-05-28] MEDS: LOSARTAN POTASSIUM 25 MG TABLET PO SCH (10:28)
[2019-05-28] MEDS: METFORMIN HCL 500 MG TABLET PO SCH ×2 (10:29→17:20)
[2019-05-28] MEDS: AZITHROMYCIN 500 MG in DEXTROSE 5%-WATER 250 ML IV SCH (10:29)
--- NOTE | 2019-05-28 11:07 | PDOC PROGRESS REPORT ---
Subjective Progress Note for:: 05/28/19 Reason For Visit: SEPSIS Physical Exam Vital Signs: Temp Pulse Resp BP Pulse Ox 98.7 F 72 20 172/74 H 94 05/28/19 03:06 05/28/19 07:00 05/28/19 03:06 05/28/19 03:06 05/28/19 03:06 Intake & Output 05/27/19 05/28/19 05/29/19 06:59 06:59 06:59 Intake Total 2500 2230 Output Total 1775 2200 Balance 725 30 Weight 64.9 kg 65.9 kg Results Laboratory Results: 05/26/19 05:52 05/26/19 05:52 Impressions: Head CT 05/25/19 14:21 IMPRESSION: Sequela of chronic ischemia without a in tissue per imposed acute intracranial abnormality. If clinical concern for an acute CVA persists then correlation with a MRI is recommended. EVIDENCE OF ACUTE STROKE: NO. Chest X-Ray 05/26/19 06:00 IMPRESSION: Improved but persistent asymmetric right basilar opacity possibly atelectasis or infection. Possible trace left effusion versus pleural thickening. Modified Barium Swallow 05/27/19 00:00 IMPRESSION: LARYNGEAL PENETRATION AND ASPIRATION ABOVE. . PLEASE SEE SPEECH PATHOLOGIST REPORT FOR OTHER FINDINGS AND RECOMMENDATIONS. Assessment and Plan - Diagnosis (1) Altered mental status Qualifiers: Altered mental status type: delirium Qualified Code(s): R41.0 - Disorientation, unspecified Is this a current diagnosis for this admission?: Yes (2) Hypertension Qualifiers: Hypertension type: essential hypertension Qualified Code(s): I10 - Essen tial (primary) hypertension Is this a current diagnosis for this admission?: Yes (3) Hypoxia Is this a current diagnosis for this admission?: Yes (4) Pneumonia Qualifiers: Pneumonia type: due to unspecified organism Laterality: right Lung loc ation: lower lobe of lung Qualified Code(s): J18.1 - Lobar pneumonia, unspecified organism Is this a current diagnosis for this admission?: Yes (5) Sepsis due to pneumonia Is this a current diagnosis for this admission?: Yes (6) Weakness Is this a current diagnosis for this admission?: Yes - Plan Summary Summary: 05/25/2019-sepsis from pneumonia: Aggressive IV fluids with IV antibiotics. Continue cardiac meds. Assess with physical therapy. I did have a long talk with patient's son and the patient may be a candidate for assisted living post discharge especially considering his 's bipolar disorder and inability to move in with or have family provide enough care with their chronic illnesses. 05/26/2019 Patient is vital signs are actually stable. Slight temperature 99.8 blood pressure 132/68, O2 saturation 97% on room air White count still normal 4400 H&H is stable Electrolytes are stable renal function stable, lactic acid yesterday was 1.7 Chest x-ray from yesterday shows improved but persistent asymmetric right basilar opacity he is currently on IV Zosyn, normal saline at 125 an hour, IV Zithromax Patient is DNR 05/27/2019 O2 sats 94% on room air patient is growing out gram-positive cocci his blood culture, chest x-ray from yesterday shows improved but persistent right basilar opacity. Day#3 of IV antibiotics Patient is much more alert and oriented today Consult discharge planning in anticipation of possible placement at time of discharge 3 to 4 days from now 05/28/2019 Patient has a pending long-term care application Patient's PASRR has been completed Patient may be ready for discharge today or tomorrow. Patient does have a bed at [facility]. Patient is medically stable for discharge placement as soon as bed secured. Patient is growing gram-positive cocci in his blood, one bottle only. Patient currently on IV Zosyn day 4 and IV Zithromax day 3 - Time Time Spent with patient: 25-34 minutes
[2019-05-28] MEDS: NYSTATIN CREAM 15 GM TP SCH ×2 (13:23→17:29)
[2019-05-28] MEDS: INSULIN REG, HUMAN 100 UNIT/ML 3 ML VIAL (PYX) SUBCUT SCH ×4 (13:23→22:18)
--- NOTE | 2019-05-28 14:51 | PDOC TRANSFER SUMMARY ---
Impression - Admit/DC Date/PCP Admission Date/Primary Care Provider: 05/25/19 17:36 RENITA FLOWERS MD Discharge Date: 05/28/19 - Discharge Diagnosis (1) Altered mental status Is this a current diagnosis for this admission?: Yes (2) Hypertension Is this a current diagnosis for this admission?: Yes (3) Hypoxia Is this a current diagnosis for this admission?: Yes (4) Pneumonia Is this a current diagnosis for this admission?: Yes (5) Sepsis due to pneumonia Is this a current diagnosis for this admission?: Yes (6) Weakness Is this a current diagnosis for this admission?: Yes - Assessment Summary: 05/25/2019-sepsis from pneumonia: Aggressive IV fluids with IV antibiotics. Continue cardiac meds. Assess with physical therapy. I did have a long talk with patient's son and the patient may be a candidate for assisted living post discharge especially considering his 's bipolar disorder and inability to move in with or have family provide enough care with their chronic illnesses. 05/26/2019 Patient is vital signs are actually stable. Slight temperature 99.8 blood pressure 132/68, O2 saturation 97% on room air White count still normal 4400 H&H is stable Electrolytes are stable renal function stable, lactic acid yesterday was 1.7 Chest x-ray from yesterday shows improved but persistent asymmetric right basilar opacity he is currently on IV Zosyn, normal saline at 125 an hour, IV Zithromax Patient is DNR 05/27/2019 O2 sats 94% on room air patient is growing out gram-positive cocci his blood culture, chest x-ray from yesterday shows improved but persistent right basilar opacity. Day#3 of IV antibiotics Patient is much more alert and oriented today Consult discharge planning in anticipation of possible placement at time of discharge 3 to 4 days from now 05/28/2019 Patient has a pending long-term care application Patient's PASRR has been completed Patient may be ready for discharge today or tomorrow. Patient does have a bed at [facility] offered. Patient is medically stable for discharge placement as soon as bed secured. Patient is growing gram-positive cocci in his blood, one bottle only. Patient currently on IV Zosyn day 4 and IV Zithromax day 3 05/28/2019 1430 hrs. Patient is ready to go back to [facility] and I have done his discharge plan. I have written a prescription for Zithromax 500 mg 7 tablets to complete his 10-day course of antibiotics. I have also written for Prilosec 10 mg daily, he will resume his other medications as prior to admission - Additional Information Resuscitation Status: Do Not Resuscitate Discharge Diet: Diabetic, Other (Comments) - Patient should be on a mechanical soft chopped diet, nectar thickened. Patient should be sitting upright and eating small bites when fed Discharge Activity: Balance Activity w/Rest Referrals: RENITA FLOWERS MD [Primary Care Provider] - Follow up as needed Prescriptions: Omeprazole Magnesium [Prilosec] 10 mg PO QHS #30 suspdr.pkt Azithromycin [Zithromax 250 mg Tablet] 500 mg PO DAILY #7 tablet Home Medications: Atorvastatin Calcium [Lipitor 20 mg Tablet] 20 mg PO QHS 05/25/19 Losartan Potassium [Cozaar 25 mg Tablet] 25 mg PO DAILY 05/25/19 Metformin HCl [Glucophage XR 500 mg Tablet] 500 mg PO DAILYP PRN 05/25/19 Acetaminophen [Tylenol 325 mg Tablet] 650 mg PO Q4HP PRN tablet 05/28/19 Acetaminophen [Tylenol 650 mg Supp] 650 mg ND Q4HP PRN supp.rect 05/28/19 Aspirin [Ecotrin 81 mg EC Tablet] 81 mg PO QHS tabec 05/28/19 Atorvastatin Calcium [Lipitor 20 mg Tablet] 20 mg PO QHS tablet 05/28/19 Azithromycin [Zithromax 250 mg Tablet] 500 mg PO DAILY #7 tablet 05/28/19 Losartan Potassium [Cozaar 25 mg Tablet] 25 mg PO DAILY tablet 05/28/19 Metformin HCl [Glucophage 500 mg Tablet] 500 mg PO BIDACBS tablet 05/28/19 Omeprazole Magnesium [Prilosec] 10 mg PO QHS #30 suspdr.pkt 05/28/19 History of Present Illiness History of Present Illness: KALEB FRANKLIN is a 78 year old male Physical Exam Vital Signs: Temp Pulse Resp BP Pulse Ox 98.7 F 105 H 20 172/74 H 94 05/28/19 03:06 05/28/19 14:00 05/28/19 03:06 05/28/19 03:06 05/28/19 03:06 Intake & Output 05/27/19 05/28/1919 06:59 06:59 06:59 Intake Total 2500 2230 280 Output Total 1775 2200 800 Balance 725 30 -520 Weight 64.9 kg 65.9 kg Results Laboratory Results: WBC 4.4 10^3/uL (4.0-10.5) 05/26/19 05:52 RBC 3.63 10^6/uL (4.35-5.55) L 05/26/19 05:52 Hgb 9.2 g/dL (13.5-17.0) L 05/26/19 05:52 Hct 28.5 % (37.9-51.0) L 05/26/19 05:52 MCV 79 fl (80-97) L 05/26/19 05:52 MCH 25.4 pg (27.0-33.4) L 05/26/19 05:52 MCHC 32.3 g/dL (32.0-36.0) 05/26/19 05:52 RDW 17.4 % (11.5-14.0) H 05/26/19 05:52 Plt Count 185 10^3/uL (150-450) 05/26/19 05:52 Lymph % (Auto) 11.6 % (13-45) L 05/26/19 05:52 [place] % (Auto) 9.7 % (3-13) 05/26/19 05:52 Eos % (Auto) 0.6 % (0-6) 05/26/19 05:52 Baso % (Auto) 0.5 % (0-2) 05/26/19 05:52 Absolute Neuts (auto) 3.4 10^3/uL (1.7-8.2) 05/26/19 05:52 Absolute Lymphs (auto) 0.5 10^3/uL (0.5-4.7) 05/26/19 05:52 Absolute Monos (auto) 0.4 10^3/uL (0.1-1.4) 05/26/19 05:52 Absolute Eos (auto) 0.0 10^3/uL (0.0-0.6) 05/26/19 05:52 Absolute Basos (auto) 0.0 10^3/uL (0.0-0.2) 05/26/19 05:52 Total Counted 100 05/25/19 12:48 Seg Neutrophils % 77.6 % (42-78) 05/26/19 05:52 Seg Neuts % (Manual) 88 % (42-78) H 05/25/19 12:48 Band Neutrophils % 3 % (3-5) 05/25/19 12:48 Lymphocytes % (Manual) 3 % (13-45) L 05/25/19 12:48 Atypical Lymphs % 1 % (0) 05/25/19 12:48 Monocytes % (Manual) 5 % (3-13) 05/25/19 12:48 Eosinophils % (Manual) 0 % (0-6) 05/25/19 12:48 Basophils % (Manual) 0 % (0-2) 05/25/19 12:48 Abs Neuts (Manual) 7.1 10^3/uL (1.7-8.2) 05/25/19 12:48 Abs Lymphs (Manual) 0.3 10^3/uL (0.5-4.7) L 05/25/19 12:48 Abs Monocytes (Manual) 0.4 10^3/uL (0.1-1.4) 05/25/19 12:48 Absolute Eos (Manual) 0.0 10^3/uL (0.0-0.6) 05/25/19 12:48 Abs Basophils (Manual) 0.0 10^3/uL (0.0-0.2) 05/25/19 12:48 Platelet Comment ADEQUATE 05/25/19 12:48 Anisocytosis 1+ 05/25/19 12:48 Microcytosis SLIGHT 05/25/19 12:48 Sodium 137.0 mmol/L (137-145) 05/26/19 05:52 Potassium 4.1 mmol/L (3.6-5.0) 05/26/19 05:52 Chloride 107 mmol/L (98-107) 05/26/19 05:52 Carbon Dioxide 23 mmol/L (22-30) 05/26/19 05:52 Anion Gap 7 (5-19) 05/26/19 05:52 BUN 20 mg/dL (7-20) 05/26/19 05:52 Creatinine 1.42 mg/dL (0.52-1.25) H 05/26/19 05:52 Est GFR ( Amer) 58 (>60) L 05/26/19 05:52 Est GFR (MDRD) Non-Af 48 (>60) L 05/26/19 05:52 Glucose 141 mg/dL (75-110) H 05/26/19 05:52 POC Glucose 172 mg/dL (70-110) H 05/28/19 13:37 Lactic Acid 1.7 mmol/L (0.7-2.1) 05/25/19 19:10 Calcium 8.0 mg/dL (8.4-10.2) L 05/26/19 05:52 Magnesium 1.7 mg/dL (1.6-2.3) 05/26/19 05:52 Total Bilirubin 0.4 mg/dL (0.2-1.3) 05/25/19 12:48 Direct Bilirubin 0.2 mg/dL (0.0-0.4) 05/25/19 12:48 Neonat Total Bilirubin Not Reportable 05/25/19 12:48 Neonat Direct Bilirubin Not Reportable 05/25/19 12:48 Neonat Indirect Bili Not Reportable 05/25/19 12:48 AST 21 U/L (17-59) 05/25/19 12:48 ALT 20 U/L (<50) 05/25/19 12:48 Alkaline Phosphatase 96 U/L (38-126) 05/25/19 12:48 Total Protein 7.1 g/dL (6.3-8.2) 05/25/19 12:48 Albumin 3.5 g/dL (3.5-5.0) 05/25/19 12:48 Urine Color LIGHT YELLOW 05/25/19 13:23 Urine Appearance CLEAR 05/25/19 13:23 Urine pH 7.0 (5.0-9.0) 05/25/19 13:23 Ur Specific [place] 1.015 05/25/19 13:23 Urine Protein 30 mg/dL (NEGATIVE) H 05/25/19 13:23 Urine Glucose (UA) 500 mg/dL (NEGATIVE) H 05/25/19 13:23 Urine Ketones NEGATIVE mg/dL (NEGATIVE) 05/25/19 13:23 Urine Blood MODERATE (NEGATIVE) H 05/25/19 13:23 Urine Nitrite NEGATIVE (NEGATIVE) 05/25/19 13:23 Urine Bilirubin NEGATIVE (NEGATIVE) 05/25/19 13:23 Urine Urobilinogen NEGATIVE mg/dL (<2.0) 05/25/19 13:23 Ur Leukocyte Esterase NEGATIVE (NEGATIVE) 05/25/19 13:23 Urine RBC 30-50 /HPF 05/25/19 13:23 Urine WBC RARE /HPF 05/25/19 13:23 Amorphous Sediment TRACE 05/25/19 13:23 Urine Yeast PRESENT 05/25/19 13:23 Urine Ascorbic Acid NEGATIVE (NEGATIVE) 05/25/19 13:23 Urine Opiates Screen NEGATIVE 05/25/19 13:23 Urine Methadone Screen NEGATIVE 05/25/19 13:23 Ur Barbiturates Screen NEGATIVE 05/25/19 13:23 Ur Phencyclidine Scrn NEGATIVE 05/25/19 13:23 Ur Amphetamines Screen NEGATIVE 05/25/19 13:23 U Benzodiazepines Scrn NEGATIVE 05/25/19 13:23 Urine Cocaine Screen NEGATIVE 05/25/19 13:23 U Marijuana (THC) Screen NEGATIVE 05/25/19 13:23 Serum Alcohol < 10 mg/dL (NONE DETECTED) 05/25/19 12:48 Influenza A (Rapid) NEGATIVE (NEGATIVE) 05/25/19 14:49 Influenza B (Rapid) NEGATIVE (NEGATIVE) 05/25/19 14:49 Impressions: Chest X-Ray 05/25/19 14:21 IMPRESSION: 1. Asymmetric airspace opacity in the right lower lobe. Correlate with clinical findings to exclude pneumonia. 2. Blunting of the left lateral costophrenic sulcus that could represent a trace pleural effusion or chronic pleural thickening. Head CT 05/25/19 14:21 IMPRESSION: Sequela of chronic ischemia without a in tissue per imposed acute intracranial abnormality. If clinical concern for an acute CVA persists then correlation with a MRI is recommended. EVIDENCE OF ACUTE STROKE: NO. Chest X-Ray 05/26/19 06:00 IMPRESSION: Improved but persistent asymmetric right basilar opacity possibly atelectasis or infection. Possible trace left effusion versus pleural thickening. Modified Barium Swallow 05/27/19 00:00 IMPRESSION: LARYNGEAL PENETRATION AND ASPIRATION ABOVE. . PLEASE SEE SPEECH PATHOLOGIST REPORT FOR OTHER FINDINGS AND RECOMMENDATIONS. Stroke Is this a Stroke Patient?: No Acute Heart Failure - Is this a Heart Failure Patient?: No
[2019-05-28] MEDS: PIPERACILLIN SODIUM/TAZOBACTAM 3.375 GM in NORMAL SALINE 100 ML IV SCH ×2 (17:13→23:47)
[2019-05-28] MEDS: ASPIRIN 81 MG TABLET, ENT COATED PO SCH (22:18)
[2019-05-28] MEDS: ATORVASTATIN CALCIUM 20 MG TABLET PO SCH (22:18)
[2019-05-29] MEDS: PANTOPRAZOLE SODIUM 40 MG TABLET.DR PO SCH (05:37)
[2019-05-29] MEDS: PIPERACILLIN SODIUM/TAZOBACTAM 3.375 GM in NORMAL SALINE 100 ML IV SCH (05:40)
[2019-05-29] MEDS: INSULIN REG, HUMAN 100 UNIT/ML 3 ML VIAL (PYX) SUBCUT SCH (08:35)
[2019-05-29] MEDS: METFORMIN HCL 500 MG TABLET PO SCH (08:36)
[2019-05-29 08:41] VITALS: BP 170/80
--- NOTE | 2019-05-29 08:55 | Progress Note ---
Provider Note Provider Note: Patient was supposed to be discharged yesterday May 28, 2019, recently transport cannot make the arrangements until 2300 hrs. last night that would be unacceptable as far as transferring the patient out of the hospital. For the [facility]
[2019-05-29] MEDS ORDERED: AZITHROMYCIN 250 MG TABLET PO SCH (10:00)
== END 2019-05-29 09:05 | DRG 871 ==
LOC: ER 12:35 → EH 17:17 → OBSVTOIN 17:36 → 3S 20:51
PROVIDERS: ADMIT Hospitalist; ATTEND Hospitalist
DX: A41.9 Sepsis, unspecified organism (principal); J18.1 Lobar pneumonia, unspecified organism; I45.10 Unspecified right bundle-branch block; I10 Essential (primary) hypertension; E78.5 Hyperlipidemia, unspecified; E11.9 Type 2 diabetes mellitus without complications; M19.012 Primary osteoarthritis, left shoulder; M19.011 Primary osteoarthritis, right shoulder; Z66 Do not resuscitate; R09.02 Hypoxemia; R53.1 Weakness; R41.82 Altered mental status, unspecified; Z79.84 Long term (current) use of oral hypoglycemic drugs; Z79.82 Long term (current) use of aspirin; Z87.440 Personal history of urinary (tract) infections; Z86.73 Personal history of transient ischemic attack (TIA), and cerebral infarction without residual deficits; Z82.49 Family history of ischemic heart disease and other diseases of the circulatory system; Z82.3 Family history of stroke
CPT/HCPCS: 36415; 70450; 71045; 74230; 80048; 80053; 80307; 81001; 82962; 83605; 83735; 85025; 87040; 87077; 87186; 87804; 93005; 93010; 96365; 99285; J0131; J0456; J1815; J2543; J3490; J7030; J7040; J7050; J7060

== ENCOUNTER 2019-07-25 18:18 | Emergency (ER) | payer MEDICAID, MEDICARE ==
--- NOTE | 2019-07-25 20:46 | ER Document Report ---
ED Fall - General Chief Complaint: Fall Injury Stated Complaint: FALL Time Seen by Provider: 07/25/19 20:21 Primary Care Provider: RENITA FLOWERS MD [Primary Care Provider] - Follow up as needed Mode of Arrival: Medic Information source: Patient Notes: 78-year-old male presented to ED for fall at the care home. He states he was standing at the nurses station when he was especially walking on his own when he fell causing abrasion to his forehead. He states the only thing that hurts is the abrasion to his forehead. He has no loss of consciousness. He is a DO NOT RESUSCITATE. He has no other injuries. I have examined both arms both legs both hips his buttocks is back his neck he has not complained of any pain anywhere. He states he just has a little bit of a headache from the abrasion. The abrasion has been cleaned and dressed. TRAVEL OUTSIDE OF THE [place] IN LAST 30 DAYS: No - HPI Occurred: Just prior to arrival Where: Long Term Context: Lost balance Associated symptoms: None Location of injury/pain: Face Quality of pain: Achy Severity: Mild Pain Level: 1 - Related data Allergies/Adverse Reactions: No Known Allergies Allergy (Verified 07/25/19 18:32) Home Medications: Mandi Garcia did not send MedRec. Past Medical History - General Information source: Patient - Social History Smoking Status: Unknown if Ever Smoked Chew tobacco use (# tins/day): No Frequency of alcohol use: None Drug Abuse: None Family History: CAD, CVA, Malignancy, Other - Depression Patient has suicidal ideation: No Patient has homicidal ideation: No - Past Medical History Cardiac Medical History: Reports: Hx Hypercholesterolemia, Hx Hypertension Pulmonary Medical History: Reports: Hx Pneumonia EENT Medical History: Reports: None Neurological Medical History: Reports: None Endocrine Medical History: Reports: Hx Diabetes Mellitus Type 2 Renal/ Medical History: Reports: Hx Kidney Stones Malignancy Medical History: Reports None GI Medical History: Reports: None Musculoskeletal Medical History: Reports Hx Arthritis - SHOULDERS Skin Medical History: Reports None Psychiatric Medical History: Reports: Other - Altered mental Traumatic Medical History: Reports: None Infectious Medical History: Reports: None - Immunizations Hx Diphtheria, Pertussis, Tetanus Vaccination: Yes Review of Systems - Review of Systems Constitutional: No symptoms reported EENT: No symptoms reported Cardiovascular: No symptoms reported Respiratory: No symptoms reported Gastrointestinal: No symptoms reported Genitourinary: No symptoms reported Male Genitourinary: No symptoms reported Musculoskeletal: No symptoms reported Skin: Other - Abrasion left forehead contusion left forehead Hematologic/Lymphatic: No symptoms reported Neurological/Psychological: No symptoms reported -: Yes All other systems reviewed and negative Physical Exam - Vital signs Vitals: Temp Pulse Resp BP Pulse Ox 97.7 F 84 19 127/72 H 96 07/25/19 18:23 07/25/19 18:23 07/25/19 18:23 07/25/19 18:23 07/25/19 18:23 Interpretation: Normal - General General appearance: Appears well, Alert - HEENT Head: Abrasions, Tenderness - Left forehead Eyes: Normal Pupils: PERRL - Respiratory Respiratory status: No respiratory distress Chest status: Nontender Breath sounds: Normal Chest palpation: Normal - Cardiovascular Rhythm: Regular Heart sounds: Normal auscultation Murmur: No - Abdominal Inspection: Normal Distension: No distension Bowel sounds: Normal Tenderness: Nontender Organomegaly: No organomegaly - Back Back: Normal, Nontender - Extremities General upper extremity: Normal inspection, Nontender, Normal color, Normal ROM, Normal temperature General lower extremity: Normal inspection, Nontender, Normal color, Normal ROM, Normal temperature, Normal weight bearing. No: Kaila's sign - Neurological Neuro grossly intact: Yes Cognition: Normal Orientation: AAOx4 Transfer Coma Scale Eye Opening: Spontaneous Transfer Coma Scale Verbal: Oriented Beto Coma Scale Motor: Obeys Commands Transfer Coma Scale Total: 15 Speech: Normal Motor strength normal: LUE, RUE, LLE, RLE Sensory: Normal - Psychological Associated symptoms: Normal affect, Normal mood - Skin Skin Temperature: Warm Skin Moisture: Dry Skin Color: Normal Course - Re-evaluation Re-evalutation: 07/25/19 21:42 Patient has no tenderness to any arms legs abdomen and back chest neck or head except for the abrasion to the left forehead. He denies any pain in any location. 07/25/19 21:43 She was discharged back to the care home to continue present orders. - Vital Signs Vital signs: Temp Pulse Resp BP Pulse Ox 98.2 F 65 17 110/47 L 100 07/25/19 20:46 07/25/19 20:46 07/25/19 20:46 07/25/19 20:46 07/25/19 20:46 Discharge - Discharge Clinical Impression: Fall Qualifiers: Encounter type: initial encounter Qualified Code(s): W19.XXXA - Unspecified fall, initial encounter Abrasion of forehead Qualifiers: Encounter type: initial encounter Qualified Code(s): S00.81XA - Abrasion of other part of head, initial encounter Condition: Stable Disposition: HOME-SNF (ED ONLY) Additional Instructions: HEAD INJURY PRECAUTIONS: At this point, there is no evidence that your head injury is serious. Observation is necessary, however. Take only clear liquids for the first few hours, unless told otherwise by the doctor. If no pain medication was prescribed, you may take acetaminophen according to the directions on the bottle. Do not take any medication that may alter your level of alertness (unless you've discussed it with the doctor first). Limit activity for the first 24 hours. Bed rest is best. During the first 24 hours, check to see approximately every two to three hours that the patient is easily arousable, responds normally, and can perform common tasks such as walking without difficulty. Contact your doctor or go to the hospital if any of the following things occur: Persistent vomiting, difficulty in arousing the patient, worsening or continued headache, or failure to improve as expected. Head injuries can cause symptoms that persist for a few days or even a few weeks. CONTUSION: Your injury has resulted in a contusion -- a crushing of the deep tissues. No injury to important structures was detected during the physician's exam. Contusions vary in the amount of pain they cause, and in the length of time required for healing. Typically, the area will become bruised, and will remain painful to touch for two or three weeks. However, most patients are back to working and playing within a few days. After the initial period of rest and cold-packs, your symptoms (together with the doctor's recommendations) will determine how rapidly you can get back to full activity. Usually this means "do what feels okay, but don't do things that hurt." If re-examination was recommended, it's important to follow up as instructed. Call the doctor or return any time if pain increases, if swelling becomes severe, if you develop numbness or weakness in an injured extremity, or if any other alarming symptoms occur. ABRASIONS: An abrasion is a scraping injury of the skin. Some scarring may result. The seriousness of an abrasion is not always obvious at first. Hidden tissue damage may be present and infection may occur despite proper care. Complete healing may take from ten days to as long as a month. The healing time depends on the depth of the abrasion, and on the amount of crushing of und erlying tissues from the injury. Keep the wound and dressing clean. Do not shower or bathe the area until okayed by the doctor. If the dressing gets wet, remove it and blot the wound dry, then reapply a clean dressing. Dressings should be changed every day. Sunscreen should be used for six months after the skin is healed. If any signs of infection occur (swelling, redness, increasing tenderness, red streaks, profuse purulent drainage from the abrasion, tender lumps in the armpit or groin above the abrasion, or fever), see the doctor immediately. USE OF TYLENOL (ACETAMINOPHEN): Acetaminophen may be taken for pain relief or fever control. It's much safer than aspirin, offering a wider range of "safe" dosages. It is safe during . Some brand names are Tylenol, Panadol, Datril, Anacin 3, Tempra, and Liquiprin. Acetaminophen can be repeated every four hours. The following are maximum recommended dosages: WEIGHT Dose Drops Elixir Chewable(80mg) (LBS.) drprs=droppers tsp=teaspoon 6 40 mg 0.4 ml (1/2) 6-11 80 mg 0.8 ml (full) tsp 1 tab 12-16 120 mg 1 1/2 drprs 3/4 tsp 1 1/2 tabs 17-23 160 mg 2 drprs 1 tsp 2 tabs 24-30 240 mg 3 drprs 1 1/2 tsp 3 tabs 30-35 320 mg 2 tsp 4 tabs 36-41 360 mg 2 1/4 tsp 4 1/2 tabs 42-47 400 mg 2 1/2 tsp 5 tabs 48-53 480 mg 3 tsp 6 tabs 54-59 520 mg 3 1/4 tsp 6 1/2 tabs 60-64 560 mg 3 1/2 tsp 7 tabs 65-70 600 mg 3 3/4 tsp 7 1/2 tabs 71-76 640 mg 4 tsp 8 tabs 77-82 720 mg 4 1/2 tsp 9 tabs 83-88 800 mg 5 tsp 10 tabs >89 pounds or adults 650 mg to 900 mg Acetaminophen can be repeated every four hours. Maximum dose not to exceed 4000 mg a day. These maximum recommended dosages are slightly higher than the dosages written on the product container, but these dosages are very safe and below the toxic dosage for acetaminophen. Soap Cleansing Gently wash the wound daily using a mild soap (like Ivory, Phisoderm, Neutrogena). Use warm water, rubbing gently until all debris, ooze, and crusting have been washed from the wound. Allow to dry briefly (about 10 minutes) after cleaning. Repeat this cleansing at least three times a day for the first two days and then once or twice a day. Antibiotic Ointment Protection Your wounds are such that dressing them is not practical or optional. After cleansing, you should apply a thin coating of antibiotic ointment (Ba citracin, not Neosporin) to the wounds at least three times daily. This lessens infection risk, and may decrease the amount of scarring. Use a q-tip or dull butter knife, not your finger, to apply this ointment. Any debris or ooze which builds up in the ointment should be gently rubbed off with a sterile gauze pad. Harder crusting may need to be gently scrubbed off with a clean wash cloth with soap and warm water, perhaps applying a warm, wet wash cloth to the wound for ten minutes first. Development of redness, severe itching, or blistering may mean allergy to the ointment. See the doctor. ICE PACKS: Apply ice packs frequently against the painful area. Many different schedules are recommended, such as "20 minutes on, 20 minutes off" or "one hour ice, two hours rest." If you need to work, you may need to go longer between ice treatments. You should plan to have the area ice packed AT LEAST one fourth of the time. The ice should be applied over the wrap, tape, or splint, or over a layer of cloth -- not directly against the skin. Some ice bags have a built-in cloth and can be put directly on the skin. FOLLOW-UP CARE: If you have been referred to a physician for follow-up care, call the physicians office for an appointment as you were instructed or within the next two days. If you experience worsening or a significant change in your symptoms, notify the physician immediately or return to the Emergency Department at any time for re-evaluation. Referrals: RENITA FLOWERS MD [Primary Care Provider] - Follow up as needed
[2019-07-25 20:47] VITALS: BP 110/47
== END 2019-07-25 20:55 ==
LOC: ER 18:18
DX: S00.81XA Abrasion of other part of head, initial encounter (principal); W18.39XA Other fall on same level, initial encounter; Y92.128 Other place in nursing home as the place of occurrence of the external cause; Z66 Do not resuscitate; E78.00 Pure hypercholesterolemia, unspecified; I10 Essential (primary) hypertension; E11.9 Type 2 diabetes mellitus without complications; Z87.442 Personal history of urinary calculi
CPT/HCPCS: 99284

== ENCOUNTER 2019-07-30 11:32 | Emergency (ER) | payer MEDICARE ==
--- NOTE | 2019-07-30 12:30 | RADIOLOGY REPORT (SQ) ---
EXAM DESCRIPTION: CT HEAD WITHOUT COMPLETED DATE/TIME: 07/30/2019 12:19 pm REASON FOR STUDY: hallway 1 s/p fall per provider stacy COMPARISON: 05/25/2019 TECHNIQUE: Axial images acquired through the brain without intravenous contrast. Images reviewed wi th bone, brain and subdural windows. Additional sagittal and coronal reconstructions were generated. Images stored on PACS. All CT scanners at this facility use dose modulation, iterative reconstruction, and/or weight based d osing when appropriate to reduce radiation dose to as low as reasonably achievable (ALARA). [facility]: Dose Right [facility]: CareDose [facility]: Dose Right [facility]: Teradose 4D [facility]: Lime&Tonic RADIATION DOSE: CT Rad equipment meets quality standard of care and radiation dose reduction techniq ues were employed. CTDIvol: 53.2 mGy. DLP: 991 mGy-cm.mGy. LIMITATIONS: None. FINDINGS: VENTRICLES: Prominent. CEREBRUM: No masses. No hemorrhage. No midline shift. Areas of low density in the white matter mos t likely due to chronic micro-vascular ischemic change. Stable more focal areas of hypoattenuation w ithin the basal ganglia bilaterally and charlene, likely chronic lacunar infarcts. No evidence for acute large vascular territory infarction. CEREBELLUM: No masses. No hemorrhage. No alteration of density. No evidence for acute infarction. EXTRAAXIAL SPACES: Age-related involutional change. No fluid collections. No masses. ORBITS AND GLOBE: No intra- or extraconal masses. Normal contour of globe without masses. CALVARIUM: No fracture. Stable multiple scattered lucent lesions throughout the calvarium, possibly venous lakes. PARANASAL SINUSES: No fluid or mucosal thickening. SOFT TISSUES: No mass or hematoma. OTHER: No other significant finding. IMPRESSION: NO EVIDENCE OF ACUTE INTRACRANIAL PROCESS. STATE CHRONIC CHANGES OF ATROPHY AND MICROVASCULAR ISCHEMIA. 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 EVIDENCE OF ACUTE STROKE: NO. TECHNICAL DOCUMENTATION: JOB ID: [id number] Quality ID # [id number]: Final reports with documentation of one or more dose reduction techniques (e.g., Au tomated exposure control, adjustment of the mA and/or kV according to patient size, use of iterative reconstruction technique) 2010 [employer]- All Rights Reserved Reading location - IP/workstation name: [email or web address]
--- NOTE | 2019-07-30 12:34 | RADIOLOGY REPORT (SQ) ---
EXAM DESCRIPTION: CT CERVICAL SPINE WITHOUT COMPLETED DATE/TIME: 07/30/2019 12:19 pm REASON FOR STUDY: hallway 1 s/p fall per provider stacy COMPARISON: None. TECHNIQUE: Axial images acquired through the cervical spine without intravenous contrast. Images re viewed with lung, soft tissue and bone windows. Reconstructed coronal and sagittal MPR images review ed. Images stored on PACS. All CT scanners at this facility use dose modulation, iterative reconstruction, and/or weight based d osing when appropriate to reduce radiation dose to as low as reasonably achievable (ALARA). [facility]: Dose Right [facility]: CareDose [facility]: Dose Right [facility]: Teradose 4D [facility]: [employer] RADIATION DOSE: CT Rad equipment meets quality standard of care and radiation dose reduction techniq ues were employed. CTDIvol: 16.1 mGy. DLP: 354 mGy-cm. mGy. LIMITATIONS: None. FINDINGS: ALIGNMENT: Straightening of the normal cervical lordosis, likely positional. MINERALIZATION: Normal. VERTEBRAL BODIES: No fractures or dislocation. DISCS: Multilevel disc height loss throughout the cervical spine. No bulky osteophytes. FACETS, LATERAL MASSES, POSTERIOR ELEMENTS: No facet fracture dislocation. Multilevel facet arthropa thy, greatest at C2 -C4 on the right. HARDWARE: None in the spine. VISUALIZED RIBS: No fractures. LUNG APICES AND SOFT TISSUES: Shotty upper mediastinal lymph nodes without discrete adenopathy. No p neumothorax. OTHER: Scattered vascular calcifications. IMPRESSION: Mild multilevel degenerative change without evidence of acute bony abnormality of the c ervical spine. TECHNICAL DOCUMENTATION: JOB ID: [id number] Quality ID # [id number]: Final reports with documentation of one or more dose reduction techniques (e.g., Au tomated exposure control, adjustment of the mA and/or kV according to patient size, use of iterative reconstruction technique) 2010 [employer]- All Rights Reserved Reading location - IP/workstation name: [email or web address]
--- NOTE | 2019-07-30 12:35 | RADIOLOGY REPORT (SQ) ---
EXAM DESCRIPTION: SHOULDER RIGHT 2 OR MORE VIEWS COMPLETED DATE/TIME: 07/30/2019 12:25 pm REASON FOR STUDY: hallway 1 s/p fall with tenderness COMPARISON: None. NUMBER OF VIEWS: Three views. TECHNIQUE: Internal rotation, external rotation, and Y view images acquired of the right shoulder. LIMITATIONS: None. FINDINGS: MINERALIZATION: Decreased. BONES: No acute fracture. Glenohumeral and acromioclavicular osteoarthropathy with joint space loss and osteophytosis. JOINTS: No dislocation. Decreased subacromial space compatible with chronic rotator cuff loss. VISUALIZED LUNGS AND RIBS: No pneumothorax. No rib fracture. SOFT TISSUES: No radiopaque foreign body. OTHER: No other significant finding. IMPRESSION: 1. No evidence of acute bony abnormality. 2. 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 TECHNICAL DOCUMENTATION: JOB ID: [id number] [employer]- All Rights Reserved Reading location - IP/workstation name: [email or web address]
[2019-07-30] MEDS ORDERED: RINGERS SOLUTION,LACTATED 1,000 ML IV ONE (19:08)
--- NOTE | 2019-07-30 19:13 | ER Document Report ---
ED General - General Chief Complaint: Fall Stated Complaint: FALL/RIGHT SHOULDER PAIN Time Seen by Provider: 07/30/19 17:42 Primary Care Provider: RENITA FLOWERS MD [Primary Care Provider] - Follow up as needed TRAVEL OUTSIDE OF THE [place] IN LAST 30 DAYS: No - Related Data Allergies/Adverse Reactions: No Known Allergies Allergy (Verified 07/25/19 18:32) Past Medical History - Social History Smoking Status: Unknown if Ever Smoked Family History: CAD, CVA, Malignancy, Other - Depression Patient has suicidal ideation: No Patient has homicidal ideation: No - Past Medical History Cardiac Medical History: Reports: Hx Hypercholesterolemia, Hx Hypertension Denies: Hx Coronary Artery Disease, Hx Heart Attack Pulmonary Medical History: Denies: Hx Asthma, Hx Bronchitis, Hx COPD, Hx Pneumonia Neurological Medical History: Denies: Hx Cerebrovascular Accident, Hx Seizures Endocrine Medical History: Reports: Hx Diabetes Mellitus Type 2 Renal/ Medical History: Reports: Hx Kidney Stones. 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 Apparently he fell about 17 hours ago. They do not know how he fell. Report that he has had a decline in mental status but they do not elaborate on that at all. Able to get any history from the patient. Family members have arrived and indicated patient fell a couple days ago and when they were not aware of the fall last night. They do report that he had a decline in his mental status over the past month with decrease in eating and decrease in verbal. His neurologist 2 days ago they were concerned also and had planned some outpatient test. They have also have talked to the family about possible PEG tube placement Past medical history is significant for diabetes hypertension dementia Social history does not smoke or drink at all. Tetanus up-to-date per family Review of systems unobtainable at this time PHYSICIAN EXAM -vital signs are noted triage note and note from triage reviewed GENERAL: Well-appearing, well-nourished and in __no acute distress____ HEAD: Atraumatic, normocephalic. Old abrasion to the left alevism area and a new abrasion to the right alevism area there is no crepitus noted EYES: Pupils equal round and reactive to light, extraocular movements intact, sclera anicteric, conjunctiva are normal. ENT: nares patent, oropharynx clear without exudates. I dry mucous membranes. Face nontender NECK: supple without lymphadenopathy neck is nontender in the midline with no step-off and is moving around freely LUNGS: Breath sounds clear to auscultation bilaterally and equal. No wheezes rales or rhonchi. Nontender HEART: Regular rate and rhythm without murmurs ABDOMEN: Soft, nontender, normoactive bowel sounds. EXTREMITIES: No deformity, no edema. His right upper extremity clavicle and AC joint are nontender he does have arthritic changes in the shoulder. The elbow is nontender passively I can move the shoulder around but not cooperative for any type of movement testing NEUROLOGICAL: He is awake and alert he knows he is in the hospital and his name. He recognizes his son. He can tell me the year of the month but family says this is about his baseline. They do report that he seems to be less verbal he speech is clear he is not fully cooperative for motor function testing but he seems to have good strength in all 4 extremities and is moving all 4 extremities spontaneously downgoing toes PSYCH: Normal mood, normal affect. SKIN: Warm, Dry, normal turgor, no rashes or lesions noted. BACK-nontender in the midline Differential diagnosis includes intracranial hemorrhage dehydration abnormal electrolytes fraction Course - Re-evaluation Re-evalutation: 07/30/19 21:43 ED patient is remained stable he was given IV fluids. No real change in his mental status. Medical decision making patient presents to the ER from long-term with status post fall. Of a previous fall. CT is negative. He seems to have a grossly normal neurological exam. He seems to be about baseline per family. I did discuss the discussed findings with family. Patient is mildly dehydrated I suspect most of this is progression of his disease. Plan at this point will have just discharged home back to the long-term. They should consult family doctor on Friday PEG tube placement At this time there is no indication for admission. I have discussed the findings with patient/family with return precautions and follow-up recommendations. Verbal discharge instructions given at the bedside and opportunity for questions given. Medication warnings were given if indicated. Patient is in agreement with this plan and has verbalized understanding of return precautions and the need for primary care follow-up as directed.. 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 Some scarring may result. The seriousness of an abrasion is not always obvious at first. Hidden tissue damage may be present and infection may occur despite proper care. Complete healing may take from ten days to as long as a month. The healing time depends on the depth of the abrasion, and on the amount of crushing of underlying tissues from the injury. Keep the wound and dressing clean. Do not shower or bathe the area until okayed by the doctor. If the dressing gets wet, remove it and blot the wound dry, then reapply a clean dressing. Dressings should be changed every day. Sunscreen should be used for six months after the skin is healed. If any signs of infection occur (swelling, redness, increasing tenderness, red streaks, profuse purulent drainage from the abrasion, tender lumps in the armpit or groin above the abrasion, or fever), see the doctor immediately. Concussion You have suffered a concussion -- a temporary loss of certain brain functions due to a mild brain injury. The recovery is usually rapid and complete. The temporary problems occurring with a concussion can include loss of consciousness, dizziness, nausea, vomiting, and confusion. Repeat concussions can cause brain damage. In the future, avoid activities that will cause a blow to your head. Wear a helmet for sports such as snowboarding, biking, or skating. It's important that someone be with you for the first 24 hours. During this time, do not exercise or drive a vehicle. Do not take any pain medication stronger than acetaminophen unless prescribed by the physician. Any significant changes should be reported immediately to the physician. Signs of a problem may include: (1) Mental confusion (2) Incoordination or staggering (3) Repeated or forceful vomiting (4) Clear or bloody drainage from ear, mouth, or nose (5) Severe headache, not relieved by acetaminophen or prescribed pain medication (6) Failure to improve in 24 hours Please do neuro checks every 4 hours times Make sure patient drinks plenty of fluids follow up with your family doctor in 2 to 3 days Referrals: RENITA FLOWERS MD [Primary Care Provider] - Follow up as needed
[2019-07-30 19:31] LABS: ABSOLUTE BASOPHILS # (AUTO) 0.1 10^3/uL (0.0-0.2); ABSOLUTE EOSINOPHILS # (AUTO) 0.1 10^3/uL (0.0-0.6); ABSOLUTE LYMPHOCYTES (AUTO) 1.6 10^3/uL (0.5-4.7); ABSOLUTE MONOCYTES (AUTO) 0.9 10^3/uL (0.1-1.4); ABSOLUTE NEUT (AUTO) 5.3 10^3/uL (1.7-8.2); BASOPHILS % (AUTO) 0.7 % (0-2); EOSINOPHILS % (AUTO) 1.3 % (0-6); HEMATOCRIT 35.3 % (37.9-51.0); HEMOGLOBIN 11.6 g/dL (13.5-17.0); LYMPHOCYTES % (AUTO) 19.8 % (13-45); MEAN CORPUSCULAR HEMOGLOBIN 26.1 pg (27.0-33.4); MEAN CORPUSCULAR HGB CONC 32.8 g/dL (32.0-36.0); MEAN CORPUSCULAR VOLUME 80 fl (80-97); MONOCYTES % (AUTO) 11.1 % (3-13); PLATELET COUNT 249 10^3/uL (150-450); RED BLOOD COUNT 4.44 10^6/uL (4.35-5.55); RED CELL DISTRIBUTION WIDTH 17.6 % (11.5-14.0); SEGMENTED NEUTROPHILS % (AUTO) 67.1 % (42-78); TOTAL CELLS COUNTED % (AUTO) 100 %; WHITE BLOOD COUNT 7.8 10^3/uL (4.0-10.5)
--- NOTE | 2019-07-30 19:47 | RADIOLOGY REPORT (SQ) ---
EXAM DESCRIPTION: CHEST SINGLE VIEW COMPLETED DATE/TIME: 07/30/2019 7:28 pm REASON FOR STUDY: Fall COMPARISON: 05/26/2019 TECHNIQUE: Single frontal radiographic view of the chest acquired. NUMBER OF VIEWS: One view. LIMITATIONS: None. FINDINGS: LUNGS AND PLEURA: No pneumothorax. Persistent right basilar opacities compared to 019. No pleural effusion. MEDIASTINUM AND HILAR STRUCTURES: Stable. HEART AND VASCULAR STRUCTURES: Stable. BONES: No acute findings. HARDWARE: None in the chest. OTHER: No other significant finding. IMPRESSION: No pneumothorax or fracture identified. Persistent right basilar opacities compared to 05/26/2019, consider additional evaluation. TECHNICAL DOCUMENTATION: JOB ID: [id number] [place]-72 2010 [employer]- All Rights Reserved Reading location - IP/workstation name: [email or web address]
[2019-07-30 19:49] LABS: ALBUMIN 3.9 g/dL (3.5-5.0); ALKALINE PHOSPHATASE 83 U/L (38-126); ANION GAP 10 (5-19); ASPARTATE AMINO TRANSFERASE 23 U/L (17-59); BILIRUBIN,DIRECT 0.2 mg/dL (0.0-0.4); BILIRUBIN,TOTAL 0.4 mg/dL (0.2-1.3); BLOOD UREA NITROGEN 30 mg/dL (7-20); CALCIUM 9.8 mg/dL (8.4-10.2); CARBON DIOXIDE 29 mmol/L (22-30); CHLORIDE 100 mmol/L (98-107); GLUCOSE 124 mg/dL (75-110); POTASSIUM 4.7 mmol/L (3.6-5.0); TOTAL PROTEIN 7.5 g/dL (6.3-8.2)
[2019-07-30 20:45] LABS: APPEARANCE,URINE CLEAR; BILIRUBIN,URINE NEGATIVE (NEGATIVE); COLOR,URINE YELLOW; GLUCOSE, URINE NEGATIVE (NEGATIVE); KETONES,URINE NEGATIVE (NEGATIVE); LEUKOCYTE ESTERASE,URINE TRACE (NEGATIVE); NITRITE,URINE NEGATIVE (NEGATIVE); PROTEIN,URINE NEGATIVE (NEGATIVE); URINE SPECIFIC GRAVITY 1.016; UROBILINOGEN,URINE NEGATIVE mg/dL (<2.0)
[2019-07-30 22:34] VITALS: BP 156/81
--- NOTE | 2019-07-31 08:23 | EKG REPORT ---
SEVERITY:- ABNORMAL ECG - SINUS RHYTHM RBBB AND LPFB : Confirmed by: Alex Crain MD 31-Jul-2019 08:22:51
== END 2019-07-30 22:48 | disposition home or self-care (01) ==
LOC: ER 11:32
DX: E86.0 Dehydration (principal); F07.81 Postconcussional syndrome; G30.9 Alzheimer's disease, unspecified; F02.80 Dementia in other diseases classified elsewhere, unspecified severity, without behavioral disturbance, psychotic disturbance, mood disturbance, and anxiety; M25.511 Pain in right shoulder; W19.XXXA Unspecified fall, initial encounter; I10 Essential (primary) hypertension; E11.9 Type 2 diabetes mellitus without complications
CPT/HCPCS: 93005; 99285; 96360; 36415; 87086; 85025; 80053; 81001; 71045; 73030; 70450; 72125; 93010; J7120